=== PATIENT | female | born 1980 | race Two or more races ===

== ENCOUNTER 2020-08-04 14:02 | Outpatient (REF) | payer MEDICAID, OTHER, SELFPAY ==
[2020-08-08 22:57] LABS: HPV 16 RNA NOT DETECTED (NOT DETECTED); HPV mRNA E6/E7 rflx Detected (Not Detected)
== END 2020-08-04 14:03 | disposition home or self-care (01) ==
LOC: HO.LAB 14:02
PROVIDERS: Visit Provider Obstetrics & Gynecology
DX: Z01.419 Encounter for gynecological examination (general) (routine) without abnormal findings (principal); Z11.3 Encounter for screening for infections with a predominantly sexual mode of transmission
CPT/HCPCS: 87624; 87625; 88141; 88142

== ENCOUNTER 2020-08-04 16:48 | Outpatient (REF) | payer OTHER, MEDICAID, SELFPAY ==
[2020-08-05 02:30] LABS: CT PCR NOT DETECTED (Not Detect.); NG PCR NOT DETECTED (Not Detect.)
[2020-08-05 09:32] LABS: BV Int Neg Control Negative (Negative); BV Int Pos Control Positive (Positive)
== END 2020-08-04 16:49 | disposition home or self-care (01) ==
LOC: HO.LNP 16:48
PROVIDERS: Visit Provider Obstetrics & Gynecology
DX: Z11.3 Encounter for screening for infections with a predominantly sexual mode of transmission (principal)
CPT/HCPCS: 87480; 87491; 87510; 87591; 87660

== ENCOUNTER 2020-09-22 11:23 | Outpatient (REF) | payer OTHER, SELFPAY ==
--- NOTE | 2020-09-22 11:28 | MM_ITS ---
EXAMINATION: MM SCREENING DIGITAL BREAST TOMOSYNTHESIS, BILATERAL CLINICAL INFORMATION: Screening. Asymptomatic. No prior breast imaging. Age 40. No known family history breast cancer. The lifetime risk of breast cancer based on the Tyrer-Cuzick Model is 10%. COMPARISON: None (current study represents initial baseline exam). TECHNIQUE: Digital breast tomosynthesis is performed in both the craniocaudal and mediolateral oblique views along with computer-aided detection (CAD). Synthesized 2D images are generated from the tomosynthesis. FINDINGS: There are scattered areas of fibroglandular density (ACR BI-RADS breast composition Category b). There are no significant masses, abnormal calcifications, or other abnormalities. There is probable intramammary node posterior 1:00 left breast. Skin contours are smooth. MM/MM tomosynthesis screening BI IMPRESSION: No mammographic evidence of malignancy. ASSESSMENT: BI-RADS 2: Benign RECOMMENDATION: Routine annual mammography screening. This patient's information was entered into a reminder system with a target due date for their next mammogram.
== END 2020-09-22 11:24 | disposition home or self-care (01) ==
LOC: HO.MAMMO 11:23
PROVIDERS: Visit Provider Obstetrics & Gynecology
DX: Z12.31 Encounter for screening mammogram for malignant neoplasm of breast (principal)
CPT/HCPCS: 77063; 77067

== ENCOUNTER 2020-10-20 13:49 | Outpatient (REF) | payer OTHER, SELFPAY ==
--- NOTE | 2020-10-20 13:55 | XR_ITS ---
EXAMINATION: XR SHOULDER, RIGHT CLINICAL INFORMATION: Pain right shoulder. COMPARISON: None TECHNIQUE: AP external rotation, Grashey, scapular Y, and axillary views of the right shoulder. FINDINGS: The bones and soft tissues are normal. No fracture. Glenohumeral and acromioclavicular alignment is anatomic with normal joint space. No abnormal soft tissue calcifications. XR/XR shoulder RT min 2V IMPRESSION: Unremarkable right shoulder.
== END 2020-10-20 13:50 | disposition home or self-care (01) ==
LOC: HO.XRAY 13:49
PROVIDERS: PCP Internal Medicine; Visit Provider Internal Medicine
DX: M25.511 Pain in right shoulder (principal)
CPT/HCPCS: 73030

== ENCOUNTER 2020-10-21 09:30 | Outpatient (REF) | payer OTHER, SELFPAY ==
[2020-10-21 10:07] LABS: MANUAL DIFF FLAG NO
[2020-10-21 10:09] LABS: Basophils Percent Auto 0.4 % (0-2); Eosinophils Absolute Auto 0.1 X10*3/uL (0.0-0.4); Eosinophils Percent Auto 1.2 % (0-4); Hematocrit 40.7 % (37-47); Hemoglobin 12.9 g/dl (12.0-16.0); Imm Gran Abs Auto 0.02 X10*3/uL (0.00-0.03); Imm Gran Pct Auto 0.3 % (0.0-0.4); Lymphocytes Absolute Auto 3.2 X10*3/uL (1.2-4.9); Lymphocytes Percent Auto 47.2 % (20-40); Mean Corpuscular HGB Conc 31.7 g/dl (31.0-35.0); Mean Corpuscular Hemoglobin 26.1 pg (27.0-33.0); Mean Corpuscular Volume 82.4 fL (80-98); Mean Platelet Volume 10.4 fL (9.4-12.3); Monocytes Absolute Auto 0.4 X10*3/uL (0.1-1.2); Monocytes Percent Auto 6.1 % (2-11); Neutrophils Percent Auto 44.8 % (45-73); Platelet Count 389 X10*3/uL (160-400); Red Blood Count 4.94 X10*6/uL (4.20-5.50); Red Cell Distribution Width 13.6 % (11.0-16.0); White Blood Count 6.7 X10*3/uL (4.8-10.8)
[2020-10-21 10:42] LABS: Alanine Aminotransferase 34 U/L (0-31); Albumin Level 4.4 g/dL (3.5-5.0); Alkaline Phosphatase 62 U/L (39-117); Anion Gap 15 (12-20); Aspartate Amino Transferase 23 U/L (5-31); Bilirubin Total 0.8 mg/dL (0.0-1.0); Blood Urea Nitrogen 12 mg/dL (9-16); Calcium 9.3 mg/dL (8.4-10.2); Carbon Dioxide 24 mmol/L (22-29); Chloride 104 mmol/L (96-108); Cholesterol 254 mg/dL; Estimated Glomerular Filt Rate > 60; Glucose Fasting 173 mg/dL (60-99); HDL Cholesterol 61 mg/dL; LDL Cholesterol Calculated 146 mg/dl; Potassium 4.8 mmol/l (3.3-5.1); Sodium 138 mmol/L (135-145); Total Protein 7.6 g/dL (6.5-8.0); Triglycerides 237 mg/dL
[2020-10-21 10:52] LABS: TSH reflex Free T4 1.39 mIU/mL (0.32-4.0)
== END 2020-10-21 09:31 | disposition home or self-care (01) ==
LOC: HO.LAB 09:30
PROVIDERS: Absent Provider Internal Medicine; Visit Provider Internal Medicine
DX: E11.9 Type 2 diabetes mellitus without complications (principal); E78.5 Hyperlipidemia, unspecified; M25.511 Pain in right shoulder; Z79.899 Other long term (current) drug therapy
CPT/HCPCS: 36415; 80053; 80061; 84443; 85025

== ENCOUNTER → 2020-11-11 11:00 | Outpatient (BNVA) | payer OTHER, SELFPAY | PROVIDERS: Visit Provider Internal Medicine | DX: S46.811A Strain of other muscles, fascia and tendons at shoulder and upper arm level, right arm, initial encounter (principal) | CPT/HCPCS: 99202 ==

== ENCOUNTER 2021-09-03 08:43 | Outpatient (REF) | payer OTHER, SELFPAY ==
[2021-09-07 12:27] LABS: HPV mRNA E6/E7 rflx Not Detected (Not Detected)
== END 2021-09-03 08:44 | disposition home or self-care (01) ==
LOC: HO.LAB 08:43
PROVIDERS: PCP Internal Medicine; Visit Provider Advanced Practice Midwife
DX: Z01.419 Encounter for gynecological examination (general) (routine) without abnormal findings (principal); Z11.51 Encounter for screening for human papillomavirus (HPV)
CPT/HCPCS: 87624; 88142

== ENCOUNTER 2021-10-08 15:16 | Outpatient (REF) | payer OTHER, SELFPAY ==
--- NOTE | ~2021-10-08 | MM_ITS ---
EXAMINATION: MM SCREENING DIGITAL BREAST TOMOSYNTHESIS, BILATERAL CLINICAL INFORMATION: Screening. Asymptomatic. The lifetime risk of breast cancer based on the Tyrer-Cuzick Model is 9.0%. COMPARISON: Mammography: September 22, 2020 TECHNIQUE: Digital breast tomosynthesis is performed in both the craniocaudal and mediolateral oblique views along with computer-aided detection (CAD). Synthesized 2D images are generated from the tomosynthesis. FINDINGS: There are scattered areas of fibroglandular density (ACR BI-RADS breast composition Category b). There are no significant masses, abnormal calcifications, or other abnormalities. MM/MM tomosynthesis screening BI IMPRESSION: There are no significant changes from prior study. ASSESSMENT: BI-RADS 1: Negative RECOMMENDATION: Routine annual mammography screening. This patient's information was entered into a reminder system with a target due date for their next mammogram.
== END 2021-10-08 15:17 | disposition home or self-care (01) ==
LOC: HO.MAMMO 15:16
PROVIDERS: Visit Provider Advanced Practice Midwife
DX: Z12.31 Encounter for screening mammogram for malignant neoplasm of breast (principal)
CPT/HCPCS: 77063; 77067

== ENCOUNTER 2021-11-02 08:20 | Outpatient (REF) | payer OTHER, SELFPAY ==
[2021-11-02 09:56] LABS: Alanine Aminotransferase 12 U/L (0-31); Alkaline Phosphatase 48 U/L (39-117); Anion Gap 10 (12-20); Aspartate Amino Transferase 14 U/L (5-31); Bilirubin Total 1.2 mg/dL (0.0-1.0); Blood Urea Nitrogen 11 mg/dL (9-16); Calcium 9.5 mg/dL (8.4-10.2); Carbon Dioxide 27 mmol/L (22-29); Chloride 107 mmol/L (96-108); Cholesterol 183 mg/dL; Estimated Glomerular Filt Rate > 60; Glucose Fasting 89 mg/dL (60-99); HDL Cholesterol 50 mg/dL; LDL Cholesterol Calculated 115 mg/dl; Sodium 140 mmol/L (135-145); Total Protein 6.5 g/dL (6.5-8.0); Triglycerides 94 mg/dL
[2021-11-02 10:13] LABS: Creatinine Urine 585.75 mg/dL; Microalbum/Creatinine Ratio Ur 6.8 ug/mg cr
== END 2021-11-02 08:21 | disposition home or self-care (01) ==
LOC: HO.LAB 08:20
PROVIDERS: PCP Internal Medicine; Visit Provider Internal Medicine
DX: E11.9 Type 2 diabetes mellitus without complications (principal); E78.5 Hyperlipidemia, unspecified
CPT/HCPCS: 36415; 80053; 80061; 82043

== ENCOUNTER 2021-12-14 09:39 | Outpatient (REF) | payer OTHER, SELFPAY ==
[2021-12-15 04:40] LABS: CT PCR NOT DETECTED (Not Detect.); NG PCR NOT DETECTED (Not Detect.)
[2021-12-15 13:02] LABS: BV Int Neg Control Negative (Negative); BV Int Pos Control Positive (Positive)
[2021-12-17 09:36] LABS: HPV mRNA E6/E7 rflx Not Detected (Not Detected)
== END 2021-12-14 09:40 | disposition home or self-care (01) ==
LOC: HO.LAB 09:39
PROVIDERS: PCP Internal Medicine; Visit Provider Advanced Practice Midwife
DX: Z12.4 Encounter for screening for malignant neoplasm of cervix (principal); Z11.51 Encounter for screening for human papillomavirus (HPV); N94.6 Dysmenorrhea, unspecified; N92.0 Excessive and frequent menstruation with regular cycle; R87.615 Unsatisfactory cytologic smear of cervix
CPT/HCPCS: 87480; 87491; 87510; 87591; 87624; 87660; 88142; 99212

== ENCOUNTER 2022-01-04 13:48 | Outpatient (REF) | payer OTHER, SELFPAY ==
--- NOTE | ~2022-01-04 | US_ITS ---
EXAMINATION: US PELVIS CLINICAL INFORMATION: Excessive and frequent menstruation. COMPARISON: None. TECHNIQUE: Ultrasound of the pelvis is performed using both transabdominal and transvaginal transducers along with Doppler. Transvaginal imaging is performed due to inadequate visualization transabdominally. FINDINGS: Uterus: The uterus is anteverted, anteflexed and measures 9.1 cm in length, 5.4 mL in AP and 4.9 cm in transverse dimension. The double wall endometrial thickness is 0.9 cm. The uterus is smooth in contour and has normal myometrial echogenicity. No visible fibroid. Adnexa: Both ovaries are visualized. There is normal color flow to the adnexa. There is no ovarian torsion. There is no pelvic ascites or fluid collection. Right ovary measures 3.2 x 2.2 x 1.9 cm and volume 7.0 mL. There is an anechoic cyst measuring 2.2 x 1.7 x 2.0 cm. Left ovary measures 2.9 x 2.6 x 2.5 cm and volume 9.9 mL. There is a small heterogeneous area in the left ovary, question complex cyst There is small amount of free fluid in cul-de-sac US/US pelvic and transvaginal IMPRESSION: Unremarkable uterus. Simple cyst right ovary. Complex cyst left ovary. Minimal free fluid in the cul-de-sac.
== END 2022-01-04 13:49 | disposition home or self-care (01) ==
LOC: HO.US 13:48
PROVIDERS: PCP Internal Medicine; Visit Provider Advanced Practice Midwife
DX: N92.0 Excessive and frequent menstruation with regular cycle (principal)
CPT/HCPCS: 76830; 76856

== ENCOUNTER 2022-02-23 13:51 | Outpatient (REF) | payer OTHER, SELFPAY | END 2022-02-23 13:52 | disposition home or self-care (01) | LOC: HO.LAB 13:51 | PROVIDERS: Visit Provider Advanced Practice Midwife | DX: N92.0 Excessive and frequent menstruation with regular cycle (principal); N83.292 Other ovarian cyst, left side; Z71.2 Person consulting for explanation of examination or test findings | CPT/HCPCS: 58100; 88305 ==

== ENCOUNTER 2022-03-01 09:48 | Outpatient (REF) | payer OTHER, SELFPAY ==
[2022-03-01 10:18] LABS: Hematocrit 36.8 % (37.0-47.0); Hemoglobin 11.4 g/dl (12.0-16.0); Mean Corpuscular Hemoglobin 25.2 pg (27.0-33.0); Mean Corpuscular Volume 81.2 fL (80.0-98.0); Mean Platelet Volume 9.7 fL (9.4-12.3); Platelet Count 318 X10*3/uL (160-400); Red Blood Count 4.53 X10*6/uL (4.20-5.50); Red Cell Distribution Width 14.5 % (11.0-16.0); White Blood Count 4.2 X10*3/uL (4.8-10.8)
== END 2022-03-01 09:49 | disposition home or self-care (01) ==
LOC: HO.LAB 09:48
PROVIDERS: PCP Internal Medicine; Visit Provider Advanced Practice Midwife
DX: N92.1 Excessive and frequent menstruation with irregular cycle (principal)
CPT/HCPCS: 36415; 84443; 85027

== ENCOUNTER 2022-04-05 11:22 | Outpatient (REF) | payer OTHER, SELFPAY ==
--- NOTE | ~2022-04-05 | US_ITS ---
EXAMINATION: US PELVIS CLINICAL INFORMATION: Left-sided ovarian cyst. COMPARISON: None TECHNIQUE: Ultrasound of the pelvis is performed using both transabdominal and transvaginal transducers along with Doppler. Transvaginal imaging is performed due to inadequate visualization transabdominally. FINDINGS: Uterus: The uterus is anteverted and measures 9.6 x 5.5 x 2.7 cm The double wall endometrial thickness is 1.0 cm. The uterus is smooth in contour and has normal myometrial echogenicity. No visible fibroid. Adnexa: Both ovaries are visualized. There is normal color flow to the adnexa. There is no ovarian torsion. There is no pelvic ascites or fluid collection. Right ovary measures 4.8 x 3.9 x 2.7 cm. Volume 26.4 mL. There is a involuting small corpus luteal cyst measuring 3.0 1.8-2.2 cm. Previously right ovary measured 2.2 x 12.2 x 1.9 seen. Left ovary measures 2.5 x 1.7 x 1.5 cm and volume 3.3 mL. Previously left ovary measured 2.9 x 2.6 x 2.5 cm. The no free fluid in the cul-de-sac. US/US pelvic and transvaginal IMPRESSION: Involuting corpus luteal cyst right ovary. The uterus, cervix and the left ovary is unremarkable.
== END 2022-04-05 11:23 | disposition home or self-care (01) ==
LOC: HO.US 11:22
PROVIDERS: Visit Provider Advanced Practice Midwife
DX: N83.292 Other ovarian cyst, left side (principal)
CPT/HCPCS: 76830; 76856

== ENCOUNTER 2022-04-12 09:08 | Outpatient (REF) | payer OTHER, SELFPAY ==
[2022-04-12 10:24] LABS: Alanine Aminotransferase 12 U/L (0-31); Albumin Level 4.1 g/dL (3.5-5.0); Alkaline Phosphatase 45 U/L (39-117); Anion Gap 10 (12-20); Aspartate Amino Transferase 14 U/L (5-31); Bilirubin Total 1.2 mg/dL (0.0-1.0); Blood Urea Nitrogen 12 mg/dL (9-16); Calcium 9.2 mg/dL (8.4-10.2); Carbon Dioxide 27 mmol/L (22-29); Chloride 108 mmol/L (96-108); Cholesterol 191 mg/dL; Estimated Glomerular Filt Rate > 60; Glucose Random 86 mg/dL (60-115); HDL Cholesterol 60 mg/dL; LDL Cholesterol Calculated 111 mg/dl; Potassium 4.7 mmol/L (3.3-5.1); Sodium 140 mmol/L (135-145); Total Protein 6.9 g/dL (6.5-8.0); Triglycerides 104 mg/dL
[2022-04-12 10:30] LABS: Estimated Average Glucose 114 mg/dL; Hemoglobin A1c % 5.6 %
[2022-04-12 10:44] LABS: Vitamin D 25-OH Total 49.2 ng/mL (>30)
== END 2022-04-12 09:09 | disposition home or self-care (01) ==
LOC: HO.LAB 09:08
PROVIDERS: PCP Internal Medicine; Visit Provider Nurse Practitioner Family
DX: E11.9 Type 2 diabetes mellitus without complications (principal); E78.5 Hyperlipidemia, unspecified
CPT/HCPCS: 36415; 80053; 80061; 82306; 83036

== ENCOUNTER → 2022-05-03 09:46 | Outpatient (BNVA) | payer OTHER, SELFPAY | PROVIDERS: PCP Internal Medicine; Visit Provider Advanced Practice Midwife | DX: Z71.2 Person consulting for explanation of examination or test findings (principal); N92.0 Excessive and frequent menstruation with regular cycle | CPT/HCPCS: 99212 ==

== ENCOUNTER 2022-10-14 08:40 | Outpatient (REF) | payer OTHER, SELFPAY ==
--- NOTE | ~2022-10-14 | MM_ITS ---
EXAMINATION: MM SCREENING DIGITAL BREAST TOMOSYNTHESIS, BILATERAL CLINICAL INFORMATION: Screening. Asymptomatic. The lifetime risk of breast cancer based on the Tyrer-Cuzick Model is 12%. COMPARISON: Mammography: 10/08/2021 and 09/22/2020. TECHNIQUE: Digital breast tomosynthesis was performed in both the craniocaudal and mediolateral oblique views along with computer-aided detection (CAD). Synthesized 2D images were generated from the tomosynthesis. FINDINGS: There are scattered areas of fibroglandular density (ACR BI-RADS breast composition Category b). There is a stable parenchymal pattern of the right breast with no new abnormal dominant mass or suspicious grouping of microcalcifications. About the retroareolar region of the left breast on the craniocaudal view, there is a 7 mm density for which spot compression view and ultrasound are recommended. MM/MM tomosynthesis screening BI IMPRESSION: Left breast retroareolar density for further evaluation. ASSESSMENT: BI-RADS 0: Incomplete - Need Additional Imaging Evaluation RECOMMENDATION: 1. Additional views of the left breast. 2. Targeted ultrasound if warranted after review of the additional views. 3. Radiology department staff will contact the patient for additional imaging. This patient's information was entered into a reminder system with a target due date for their next mammogram.
== END 2022-10-14 08:41 | disposition home or self-care (01) ==
LOC: HO.MAMMO 08:40
PROVIDERS: PCP Internal Medicine; Visit Provider Internal Medicine
DX: Z12.31 Encounter for screening mammogram for malignant neoplasm of breast (principal)
CPT/HCPCS: 77063; 77067

== ENCOUNTER 2022-11-03 12:57 | Outpatient (REF) | payer OTHER, SELFPAY ==
--- NOTE | ~2022-11-03 | MM_ITS ---
EXAMINATION: MM DIAGNOSTIC DIGITAL BREAST TOMOSYNTHESIS, LEFT CLINICAL INFORMATION: Question retroareolar mass. COMPARISON: Mammography: 10/14/2022 and studies dating back to 09/22/2020. TECHNIQUE: Digital breast tomosynthesis is performed. 2D images are generated from the tomosynthesis. The following views are obtained: Spot compression craniocaudal and spot 90-degree mediolateral views. FINDINGS: There are scattered areas of fibroglandular density (ACR BI-RADS breast composition Category b). Additional views show no significant mass, architectural abnormality, or abnormal calcifications. The density seen on previous study appears to have represented superimposition of fibroglandular tissue. Results are discussed with the patient at time of visit. MM/MM tomosynthesis added views L IMPRESSION: No persistent abnormal retroareolar lesion left breast. ASSESSMENT: BI-RADS 1: Negative. RECOMMENDATION: Routine annual mammography screening. This patient's information was entered into a reminder system with a target due date for their next mammogram.
== END 2022-11-03 12:58 | disposition home or self-care (01) ==
LOC: HO.MAMMO 12:57
PROVIDERS: PCP Internal Medicine; Visit Provider Internal Medicine
DX: R92.2 Inconclusive mammogram (principal)
CPT/HCPCS: 77061; 77065

== ENCOUNTER 2022-11-16 09:09 | Outpatient (REF) | payer OTHER, SELFPAY ==
[2022-11-16 10:51] LABS: Creatinine Urine 223.37 mg/dL
[2022-11-16 10:51] LABS: Alanine Aminotransferase 12 U/L (0-31); Alkaline Phosphatase 38 U/L (39-117); Anion Gap 10 (12-20); Aspartate Amino Transferase 14 U/L (5-31); Blood Urea Nitrogen 12 mg/dL (9-16); Calcium 9.1 mg/dL (8.4-10.2); Carbon Dioxide 26 mmol/L (22-29); Chloride 109 mmol/L (96-108); Cholesterol 204 mg/dL; Estimated Glomerular Filt Rate > 60; Glucose Fasting 78 mg/dL (60-99); HDL Cholesterol 58 mg/dL; LDL Cholesterol Calculated 132 mg/dl; Potassium 4.5 mmol/L (3.3-5.1); Sodium 140 mmol/L (135-145); Total Protein 6.5 g/dL (6.5-8.0); Triglycerides 74 mg/dL
== END 2022-11-16 09:10 | disposition home or self-care (01) ==
LOC: HO.LAB 09:09
PROVIDERS: PCP Internal Medicine; Visit Provider Internal Medicine
DX: E11.65 Type 2 diabetes mellitus with hyperglycemia (principal); E78.5 Hyperlipidemia, unspecified
CPT/HCPCS: 36415; 80053; 80061; 82043

== ENCOUNTER 2023-04-21 13:52 | Outpatient (REF) | payer OTHER, SELFPAY ==
[2023-04-23 23:59] LABS: TS Negative Control Passed; TS Panel A 0; TS Panel B 1; TS Positive Control Passed; TSpotTB Negative (Negative)
== END 2023-04-21 13:53 | disposition home or self-care (01) ==
LOC: HO.LAB 13:52
PROVIDERS: PCP Internal Medicine; Visit Provider Internal Medicine
DX: Z11.1 Encounter for screening for respiratory tuberculosis (principal)
CPT/HCPCS: 36415; 86481

== ENCOUNTER 2023-05-19 10:53 | Outpatient (AMB) | payer OTHER, SELFPAY ==
[2023-05-19 10:57] VITALS: BP 126/80; BMI 24.4
--- NOTE | 2023-05-19 10:57 | MHC.PC.OV ---
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 Accompanied by: Self / Same As Patient Allergies No Known Allergies Allergy (Verified 05/19/23 11:18) Medication List - Last Reconciled 05/19/23 by Yumiko Max MD atorvastatin 20 mg PO BEDTIME 90 days blood sugar diagnostic (FreeStyle Lite Strips) Use 1 test strip once a day blood-glucose meter (FreeStyle Lite Meter kit) As directed lancets (FreeStyle Lancets) Use 1 lancet once a day metformin 500 mg PO DAILY 90 days omeprazole 20 mg PO DAILY 90 days pen needle, diabetic (BD Debi 2nd Gen Pen Needle) Use 1 pen needle daily Tobacco use date assessed: 11/09/22 Dental Screening Dental Screen Date: 05/19/23 Did you have a dental visit in the last 12 months?: Yes Did you have a dental problem in the last 6 months where you did not have access to dental care?: No Was dental information given to patient?: Patient has dentist HPI HPI Comments History of Present Illness Details This is a 43-year-old female with diabetes mellitus type 2 that comes for her physical exam. A1c within goal. Mammogram done 2022. Pap smear done 2021 with negative HPV. No chest pain or shortness of breath doing well. FORMERLY [facility], [facility]–1983 Medical History Blurry vision Chronic GERD Diabetes mellitus Dyslipidemia Obese Right shoulder pain Surgical History History of bilateral tubal ligation Hx of breast reduction, elective Family History Mother Hypertension Pre-diabetes Father Hypertension Diabetes Social History Housing: Apartment Alcohol intake: current Alcohol intake frequency: holidays/special occasions only Alcohol type: wine Patient Tobacco Use Status: Never used Tobacco e-Cigarette/Vaping Use: Never Used Second Hand Smoke Exposure: Yes service: No Current occupational status: unemployed Sexual orientation: Straight/Heterosexual Gender identity: Female Cognitive needs: No Hearing needs: No Vision needs: Yes Female Reproductive History Menstrual Age of Menarche: 13 Questionnaire Thrive Questionnaire Date Thrive assessed: 11/09/22 DIDI-7 AMB Questionnaire DIDI-7 Date DIDI - 7 assessed: 11/09/22 Source: Developed by Drs. Chandan Bañuelos, Edel Doshi, Black Fermin and colleagues, with an educational stan from [employer] Review of Systems Const All systems reviewed & are unremarkable except as noted in HPI and below Eyes Reports no additional complaints, Denies change in vision and Denies other visual disturbances Card Denies chest pain at rest, Denies chest pain with activity, Denies edema, Denies irregular heart rhythm, Denies claudication, Denies dyspnea, Denies dyspnea on exertion, Denies orthopnea, Denies paroxysmal nocturnal dyspnea and Denies slow heart rate Resp Denies cough, Denies dyspnea and Denies dyspnea on exertion GI Denies abdominal pain, Denies change in bowel habits, Denies excessive flatus, Denies nausea and Denies vomiting Denies urinary incontinence, Denies urinary hesitancy and Denies urinary urgency Musc Denies abnormal gait, Denies atrophy, Denies deformity and Denies limited range of motion Skin/Breast Denies bleeding lesions, Denies changing lesions and Denies rash Neuro Denies abnormal gait and Denies lack of coordination Physical exam (Primary Care) Vital Signs: Last Vital Signs BP 126/80 05/19/23 10:57 BMI result Body Mass Index 24.4 Tobacco/Smoking Status: Tobacco use Status Tobacco use date assessed 11/09/22 05/19/23 11:01 Patient Tobacco Use Status Never used Tobacco 05/19/23 11:01 Tobacco use type 04/08/22 12:28 e-Cigarette/Vaping Use Never Used 05/19/23 11:01 Thrive Assessment: Date of Thrive Assessment Date Thrive assessed 11/09/22 05/19/23 11:01 Const Orientation/consciousness: patient oriented x3 HENMT Head: Yes normal to inspection, Yes normocephalic and Yes atraumatic Ears: external ears normal Eyes General: appearance normal, both eyes and all related structures Eyelids: Yes eyelids normal Conjunctivae: conjunctivae normal Neck Neck: Yes normal visual inspection and Yes supple Resp Effort & Inspection: normal respiratory effort Auscultation: clear to auscultation bilaterally Cardio Jugular venous distension: no JVD Rate: regular rate Rhythm: regular rhythm Heart sounds: S1 normal heart sound present and S2 normal heart sound present GI Inspection: Yes normal to inspection Palpation (GI): Soft to palpation and nontender Auscultation: normal bowel sounds Skin General skin exam: no rashes or lesions noted Neuro General: patient oriented x3 and no focal motor deficits Extrem General: Yes full ROM Psych Appearance: grossly normal Results AMB Hemoglobin A1c AMB Hemoglobin A1c 5.3 % Last Edit by CARLITA Arias on 05/19/23 11:15 Results Reviewed Results Reviewed: Laboratory Last Values Hgb A1c (Clinic) 5.3 % (4.0-6.0) 05/19/23 11:07 Assessment and Plan Assessment & Plan (1) Adult general medical exam: Code(s): Z00.00 - Encounter for general adult medical examination without abnormal findings Plan: Repeat in a year (2) Diabetes mellitus: Code(s): E11.9 - Type 2 diabetes mellitus without complications Qualifiers: Diabetes mellitus type: type 2 Diabetes mellitus terminal superintendent insulin use: without prison use Diabetes mellitus complication status: with hyperglycemia Qualified Code(s): E11.65 - Type 2 diabetes mellitus with hyperglycemia Plan: Continue metformin. A1c goal is equal or less than 7%. Orders: Orders Vitamin B12 and Folate Today E53.8 - Deficiency of other specified B group vitamins Comprehensive [place]. Panel Fast Today E11.65 - Type 2 diabetes mellitus with hyperglycemia IRON PROFILE Today D64.9 - Anemia, unspecified Lipid Panel Today E78.5 - Hyperlipidemia, unspecified Vitamin D 25-OH Total Today E55.9 - Vitamin D deficiency, unspecified Microalbumin, Random (w Creat) Today E11.9 - Type 2 diabetes mellitus without complications Complete Blood Count Auto Diff Today D64.9 - Anemia, unspecified AMB Hemoglobin A1c Today E11.9 - Type 2 diabetes mellitus without complications Coding Level of Care Code Est Pt Prev Care 40-64y(20392) Diagnoses Adult general medical exam Z00.00 Diabetes mellitus E11.65 Diabetes mellitus type: type 2 Diabetes mellitus prison insulin use: without terminal superintendent use Diabetes mellitus complication status: with hyperglycemia Time Spent (min) 33
== END 2023-05-19 12:15 | disposition home or self-care (01) ==
PROVIDERS: PCP Internal Medicine; Visit Provider Internal Medicine
DX: Z00.00 Encounter for general adult medical examination without abnormal findings (principal); E11.65 Type 2 diabetes mellitus with hyperglycemia; E11.9 Type 2 diabetes mellitus without complications
CPT/HCPCS: 83036; 99396

== ENCOUNTER 2023-08-16 15:13 | Outpatient (AMB) | payer OTHER, SELFPAY ==
--- NOTE | 2023-08-16 15:15 | A.OFFVIS_ITS ---
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 Doing well with no concerns. She tries to eat healthy and stays active with some exercise. Regular monthly menses that last approximately x5d. Currently sexually active with her . She denies vaginal itching and irritation, only dryness-not using any products for this. STI screening offered; she declines. Denies family history of breast, ovarian or colon cancer. Last pap smear UTD. [facility], [facility] Medical History Chronic GERD Dyslipidemia Blurry vision Right shoulder pain Obese Diabetes mellitus Surgical History History of bilateral tubal ligation Hx of breast reduction, elective Family History Mother Hypertension Pre-diabetes Father Hypertension Diabetes Housing: Apartment Alcohol intake: current Alcohol intake frequency: holidays/special occasions only Alcohol type: wine Patient Tobacco Use Status: Never used Tobacco e-Cigarette/Vaping Use: Never Used Second Hand Smoke Exposure: Yes service: No Current occupational status: unemployed Sexual orientation: Straight/Heterosexual Gender identity: Female Cognitive needs: No Hearing needs: No Vision needs: Yes Female Reproductive History Menstrual Age of Menarche: 13 Duration of menses: 3-5 days Date of last menstrual period: 08/09/23 control method: permanent sterilization Permanent Sterilization: BTL Total pregnancies: 5 Full term: 2 Number of Living Children: 2 Ab spontaneous: 3 Date of last pap smear: 12/14/21 (neg pap and hpv) History of abnormal pap smear: Yes (07/2020 +hpv) Date of Mammogram: 10/14/22 (Birad 0) Review of Systems Const All systems reviewed & are unremarkable except as noted in HPI and below Reports as per HPI Eyes Reports no additional complaints ENT Reports no additional complaints Card Reports no additional complaints Resp Reports no additional complaints GI Reports as per HPI and Reports no additional complaints Reports as per HPI Musc Reports no additional complaints Skin/Breast Reports as per HPI Neuro Reports no additional complaints Psych Reports no additional complaints Endo Reports no additional complaints Vahe/Lymph Reports no additional complaints Aller/Immun Reports no additional complaints Physical Exam Vital Signs: Last Vital Signs BP 114/70 08/16/23 15:16 BMI result Body Mass Index 24.8 Const General: cooperative, healthy appearing, no acute distress, well developed and alert Orientation/consciousness: patient oriented x3 HEENT Head: Yes normal to inspection Eyes General: appearance normal, both eyes and all related structures Neck Neck: Yes normal visual inspection Thyroid: Thyroid normal Chest Other: Bilateral breast reconstruction scarring Chest palpation & inspection: normal inspection of the chest and other (no puckering, dimpling, peau de orange, retraction, discharge, masses) Breast/axilla inspection: normal inspection of the breasts Breast/axilla palpation: normal palpation of the breasts Resp Effort & Inspection: normal respiratory effort GI Other: Abdominoplasty scarring Inspection: Yes normal to inspection Palpation (GI): Soft to palpation Rectal Exam - Female: deferred General: Yes bladder normal to palpation External Female Exam: normal external appearance and normal appearance of the urethra Speculum Exam - Vagina: normal appearance of the vagina, normal palpation and normal vaginal discharge Speculum Exam - Cervix: normal appearance of the cervix and normal palpation Bimanual exam- vagina & uterus: normal bimanual exam, normal palpation, uterine size normal, bladder normal to palpation, normal palpation and non-tender Bimanual Exam- Adnexa, other: no masses Skin General skin exam: no rashes or lesions noted Rashes: no rashes Neuro General: patient oriented x3 Cognition (Neuro): normal cognition Extrem General: Yes normal to inspection Psych Attitude: cooperative Thought process: Normal thought process present Assessment & Plan Assessment & Plan (1) Encounter for well woman exam with routine gynecological exam: Code(s): Z01.419 - Encounter for gynecological examination (general) (routine) without abnormal findings Plan Discussed: Current recommendations for pap smears per ASCCP guidelines. Breast awareness and periodic breast exams. Maintain a healthy lifestyle including a well balanced diet and routine exercise. Recommended to call the office if bleeding is less than 3 weeks apart, or any heavy prolonged bleeding. Replens moisturizer. All of her questions and concerns were addressed to the best of my ability. 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 Coding Level of Care Code Est Pt Prev Care 40-64y(75741) Diagnoses Encounter for well woman exam with routine gynecological exam Z01.419
[2023-08-16 15:16] VITALS: BP 114/70; BMI 24.8
== END 2023-08-16 15:42 | disposition home or self-care (01) ==
LOC: HO.HWS 15:13
PROVIDERS: PCP Internal Medicine; Visit Provider Advanced Practice Midwife
DX: Z01.419 Encounter for gynecological examination (general) (routine) without abnormal findings (principal)
CPT/HCPCS: 99396

== ENCOUNTER → 2023-08-16 15:13 | Outpatient (BNVA) | payer OTHER, SELFPAY | PROVIDERS: PCP Internal Medicine; Visit Provider Advanced Practice Midwife ==

== ENCOUNTER 2023-10-03 11:13 | Outpatient (AMB) | payer OTHER, SELFPAY ==
[2023-10-03 11:16] VITALS: BP 110/70; BMI 23.9
--- NOTE | 2023-10-03 11:16 | MHC.PC.OV ---
Vital Signs 10/03/23 11:16 Height 5 ft 3 in Weight 135 lb BMI 23.9 BP 110/70 Blood Pressure Location Lt brachial Position Sitting Intake Visit Reasons: 4mon f/u Intake Note: Patient here for a 4 month follow up Crm Technical Lead Required: No Accompanied by: Self / Same As Patient Allergies No Known Allergies Allergy (Verified 10/03/23 11:23) Medication List - Last Reconciled 10/03/23 by Yumiko Max MD atorvastatin 20 mg PO BEDTIME 90 days blood sugar diagnostic (FreeStyle Lite Strips) Use 1 test strip once a day blood-glucose meter (FreeStyle Lite Meter kit) As directed lancets (FreeStyle Lancets) Use 1 lancet once a day metformin 500 mg PO DAILY 90 days omeprazole 20 mg PO DAILY 90 days pen needle, diabetic (BD Debi 2nd Gen Pen Needle) Use 1 pen needle daily Tobacco use date assessed: 10/03/23 Dental Screening Dental Screen Date: 10/03/23 Did you have a dental visit in the last 12 months?: Yes Did you have a dental problem in the last 6 months where you did not have access to dental care?: No Was dental information given to patient?: Patient has dentist HPI HPI Comments History of Present Illness Details This is a 43-year-old female with diabetes mellitus type 2, chronic GERD and hyperlipidemia that comes today complaining of diffuse joint pain that has been present for few months with no swelling. The pain is symmetric. She also has frequent headaches. No chest pain or shortness of breath. A1c within goal. GERD stable with PPIs as needed. Lipid panel will be order and her LDL goal should be less than 70. [facility] Medical History (Updated 10/03/23 @ 11:30 by Yumiko Max MD) Chronic GERD Dyslipidemia Blurry vision Right shoulder pain Obese Diabetes mellitus Surgical History History of bilateral tubal ligation Hx of breast reduction, elective Family History Mother Hypertension Pre-diabetes Father Hypertension Diabetes Social History Housing: Apartment Alcohol intake: current Alcohol intake frequency: holidays/special occasions only Alcohol type: wine Patient Tobacco Use Status: Never used Tobacco e-Cigarette/Vaping Use: Never Used Second Hand Smoke Exposure: Yes service: No Current occupational status: employed Current occupational exposures/hazards: No Sexual orientation: Straight/Heterosexual Gender identity: Female Cognitive needs: No Hearing needs: No Vision needs: Yes Female Reproductive History Menstrual Age of Menarche: 13 Questionnaire PHQ-9 Over the last 2 weeks, how often have you been bothered by any of the following problems? 1. Little interest or pleasure in doing things: not at all 2. Feeling down, depressed, or hopeless: not at all 3. Trouble falling or staying asleep, or sleeping too much: not at all 4. Feeling tired or having little energy: not at all 5. Poor appetite or overeating: not at all 6. Feeling bad about yourself - or that you are a failure or have let yourself or your family down: not at all 7. Trouble concentrating on things, such as reading the newspaper or watching television: not at all 8. Moving or speaking so slowly that other people could have noticed. Or the opposite - being so fidgety or restless that you have been moving around a lot more than usual: not at all 9. Thoughts that you would be better off or of hurting yourself in some way: not at all Total score: 0 Depression Screening Interpretation: Negative Depression Screening Done: Yes 10039 - PHQ-9 Billing: Yes Source: Developed by Drs. Chandan Bañuelos, Edel Doshi, Black Fermin and colleagues, with an educational stan from [employer]. Thrive Questionnaire Date Thrive assessed: 10/03/23 I am a: Patient What is your living situation today?: I have a steady place to live Within the past 12 months, did the food you bought not last and you didn't have the money to get more?: Never true Within the past 12 months, did you worry whether your food would run out before you got money to buy more?: Never true Do you have trouble paying for medicines?: No Do you have trouble getting transportation to medical appointments?: No Do you have trouble paying your heating and electricity bill?: No Do you have trouble taking care of your child, family member or friend?: No Do you have trouble with day-to-day activities such as bathing, preparing meals, shopping, managing finances, etc.?: No Are you currently unemployed and looking for a job?: No Are you interested in more education?: No Please select the resources that you would like help with: None Currently or been in a relationship where the following occur: no concerns reported AUDIT C Alcohol Use Questionnaire (AUDIT-C) 1. How often do you have a drink containing alcohol?: Monthly or less 2. How many drinks containing alcohol do you have on a typical day when you are drinking?: 1 or 2 3. How often do you have six or more drinks on one occasion?: Never Total Score: 1 Score Reviewed/Action Taken: No DIDI-7 AMB Questionnaire DIDI-7 Date DIDI - 7 assessed: 10/03/23 Feeling nervous, anxious, or on edge: 0 = Not at all Not being able to stop or control worryin = Not at all Worrying too much about different things: 0 = Not at all Trouble relaxin = Not at all Being so restless that it is hard to sit still: 0 = Not at all Becoming easily annoyed or irritable: 0 = Not at all Feeling afraid as if something awful might happen: 0 = Not at all Total DIDI-7 score (0-4 normal; 5-9 mild; 10-14 moderate; 15-21 severe): 0 Source: Developed by Drs. Chandan Bañuelos, Edel Doshi, Black Fermin and colleagues, with an educational stan from [employer]. DIDI-7 Assessment Billing DIDI-7 Assessment Tool: DIDI-7 Assessment 68967 Review of Systems Const All systems reviewed & are unremarkable except as noted in HPI and below Eyes Reports no additional complaints, Denies change in vision and Denies other visual disturbances Card Denies chest pain at rest, Denies chest pain with activity, Denies edema, Denies irregular heart rhythm, Denies claudication, Denies dyspnea, Denies dyspnea on exertion, Denies orthopnea, Denies paroxysmal nocturnal dyspnea and Denies slow heart rate Resp Denies cough, Denies dyspnea and Denies dyspnea on exertion GI Denies abdominal pain, Denies change in bowel habits, Denies excessive flatus, Denies nausea and Denies vomiting Denies urinary incontinence, Denies urinary hesitancy and Denies urinary urgency Musc Denies abnormal gait, Denies atrophy, Denies deformity and Denies limited range of motion Skin/Breast Denies bleeding lesions, Denies changing lesions and Denies rash Neuro Denies abnormal gait and Denies lack of coordination Physical exam (Primary Care) Vital Signs: Last Vital Signs BP 110/70 10/03/23 11:16 BMI result Body Mass Index 23.9 Tobacco/Smoking Status: Tobacco use Status Tobacco use date assessed 10/03/23 10/03/23 11:17 Patient Tobacco Use Status Never used Tobacco 10/03/23 11:17 Tobacco use type 04/08/22 12:28 e-Cigarette/Vaping Use Never Used 10/03/23 11:17 Depression Screening Interpretation: Negative Thrive Assessment: Date of Thrive Assessment Date Thrive assessed 11/09/22 10/03/23 11:17 Currently or been in a relationship where the following occur: no concerns reported Eyes General: appearance normal, both eyes and all related structures Eyelids: Yes eyelids normal Conjunctivae: conjunctivae normal Neck Neck: Yes normal visual inspection and Yes supple Resp Effort & Inspection: normal respiratory effort Auscultation: clear to auscultation bilaterally Cardio Jugular venous distension: no JVD Rate: regular rate Rhythm: regular rhythm Heart sounds: S1 normal heart sound present and S2 normal heart sound present Extrem General: Yes full ROM Results AMB Hemoglobin A1c AMB Hemoglobin A1c 5.5 % Last Edit by CARLITA Arias on 10/03/23 11:29 Assessment and Plan Assessment & Plan (1) Diabetes mellitus: Code(s): E11.9 - Type 2 diabetes mellitus without complications Qualifiers: Diabetes mellitus type: type 2 Diabetes mellitus intermediate manager insulin use: without intermediate manager use Diabetes mellitus complication status: with hyperglycemia Qualified Code(s): E11.65 - Type 2 diabetes mellitus with hyperglycemia Plan: Continue metformin. A1c goal is equal or less than 7%. (2) Chronic GERD: Code(s): K21.9 - Gastro-esophageal reflux disease without esophagitis Plan: Continue PPIs as needed. (3) Hyperlipidemia LDL goal <70: Code(s): E78.5 - Hyperlipidemia, unspecified Plan: Continue statins. LDL goal should be less than 70. (4) Polyarthralgia: Code(s): M25.50 - Pain in unspecified joint Plan: Referred to rheumatology. Labs ordered to rule out rheumatoid arthritis or any other connective tissue disease. Orders: Orders AMB Hemoglobin A1c Today E11.9 - Type 2 diabetes mellitus without complications Lipid Panel Today E78.5 - Hyperlipidemia, unspecified Erythrocyte Sedimentation Rate Today M25.50 - Pain in unspecified joint CRP High Sensitivity Today M25.50 - Pain in unspecified joint Rheumatoid Factor Today M25.50 - Pain in unspecified joint Anti DNA DS Antibody Today M25.50 - Pain in unspecified joint Microalbumin, Random (w Creat) Today E11.9 - Type 2 diabetes mellitus without complications Comprehensive [place]. Panel Fast Today M25.50 - Pain in unspecified joint Cyclic Citrullinated Peptide Today M25.50 - Pain in unspecified joint YUMIKO Reflex Titer and Pattern Today M25.50 - Pain in unspecified joint Referrals Rheumatology Referral M25.50 - Pain in unspecified joint Ophthalmology Referral E11.9 - Type 2 diabetes mellitus without complications Medications: New sumatriptan succinate do not exceed 8 doses per 24 hrs 25 mg PO Q2-4H 30 days PRN 9 tabs 1RF migraine headache Refilled metformin 500 mg PO DAILY 90 days 90 tabs 1RF E11.65 - Type 2 diabetes mellitus with hyperglycemia atorvastatin 20 mg PO BEDTIME 90 days 90 tabs 1RF E78.5 - Hyperlipidemia, unspecified omeprazole 20 mg PO DAILY 90 days 90 caps 3RF M25.50 - Pain in unspecified joint Coding Level of Care Code Est Pt Level 4 (49610) Diagnoses Type 2 diabetes mellitus with hyperglycemia, without long-term current use of insulin E11.65 Diabetes mellitus type: type 2 Diabetes mellitus intermediate manager insulin use: without intermediate manager use Diabetes mellitus complication status: with hyperglycemia Chronic GERD K21.9 Hyperlipidemia LDL goal <70 E78.5 Polyarthralgia M25.50 Additional Codes DIDI-7 Assessment Billing - DIDI-7 Assessment Tool: DIDI-7 Assessment [id number] ([id number]) Time Spent (min) 23
== END 2023-10-03 11:37 | disposition home or self-care (01) ==
PROVIDERS: PCP Internal Medicine; Visit Provider Internal Medicine
DX: E11.65 Type 2 diabetes mellitus with hyperglycemia (principal); E11.69 Type 2 diabetes mellitus with other specified complication; K21.9 Gastro-esophageal reflux disease without esophagitis; E78.5 Hyperlipidemia, unspecified; M25.50 Pain in unspecified joint
CPT/HCPCS: 83036; 99214

== ENCOUNTER 2023-10-11 10:12 | Outpatient (REF) | payer OTHER, SELFPAY ==
[2023-10-11 10:29] LABS: MANUAL DIFF FLAG NO
[2023-10-11 10:49] LABS: Basophils Percent Auto 0.5 % (0-2); Eosinophils Absolute Auto 0.1 X10*3/uL (0.0-0.4); Eosinophils Percent Auto 1.1 % (0-4); Imm Gran Abs Auto 0.01 X10*3/uL (0.00-0.03); Imm Gran Pct Auto 0.2 % (0.0-0.4); Lymphocytes Absolute Auto 2.5 X10*3/uL (1.2-4.9); Lymphocytes Percent Auto 56.8 % (20-40); Mean Corpuscular HGB Conc 31.4 g/dl (31.0-35.0); Mean Corpuscular Hemoglobin 25.2 pg (27.0-33.0); Mean Corpuscular Volume 80.1 fL (80.0-98.0); Mean Platelet Volume 9.5 fL (9.4-12.3); Monocytes Absolute Auto 0.2 X10*3/uL (0.1-1.2); Monocytes Percent Auto 5.2 % (2-11); Neutrophils Absolute Auto 1.6 x10*3/uL (2.0-8.3); Neutrophils Percent Auto 36.2 % (45-73); Platelet Count 346 X10*3/uL (160-400); Red Blood Count 4.37 X10*6/uL (4.20-5.50); Red Cell Distribution Width 14.2 % (11.0-16.0); White Blood Count 4.4 X10*3/uL (4.8-10.8)
[2023-10-11 11:15] LABS: Rheumatoid Factor < 13.0 IU/mL (<15.0)
[2023-10-11 11:18] LABS: Alanine Aminotransferase 12 U/L (0-31); Albumin Level 4.1 g/dL (3.5-5.0); Alkaline Phosphatase 40 U/L (39-117); Anion Gap 10 (12-20); Aspartate Amino Transferase 16 U/L (5-31); Bilirubin Total 1.2 mg/dL (0.0-1.0); Blood Urea Nitrogen 13 mg/dL (9-16); Calcium 9.2 mg/dL (8.4-10.2); Carbon Dioxide 26 mmol/L (22-29); Chloride 106 mmol/L (96-108); Cholesterol 226 mg/dL (<200); Estimated Glomerular Filt Rate > 60; Glucose Fasting 78 mg/dL (60-99); HDL Cholesterol 67 mg/dL (>40); Iron 81 mcg/dL (30-160); LDL Cholesterol Calculated 139 mg/dL (<100); Percent Iron Saturation 22 % (15-50); Sodium 138 mmol/L (135-145); Total Iron Binding Capacity 369 mcg/dL (228-428); Total Protein 7.3 g/dL (6.5-8.0); Triglycerides 102 mg/dL (<150); Unsaturated Iron Binding 288 ug/dL
[2023-10-11 11:33] LABS: Vitamin D 25-OH Total 36.4 ng/mL (>30)
[2023-10-11 11:47] LABS: Folate 6.6 ng/mL (> or = 4.0); Vitamin B12 1153 pg/mL (200-900)
[2023-10-11 11:51] LABS: Erythrocyte Sedimentation Rate 12 MM/HR (0-20)
[2023-10-11 14:06] LABS: Creatinine Urine 272.49 mg/dL; Microalbum/Creatinine Ratio Ur 4.7 ug/mg cr (<30)
[2023-10-12 16:17] LABS: CRP High Sensitivity 1.1 mg/L
[2023-10-12 19:08] LABS: Cyclic Citrullinated Peptide <16 UNITS
[2023-10-13 13:09] LABS: Anti DNA DS Antibody 5 IU/mL
[2023-10-14 12:13] LABS: Anti Nuclear Antibody Screen NEGATIVE (NEGATIVE)
== END 2023-10-11 10:13 | disposition home or self-care (01) ==
LOC: HO.LAB 10:12
PROVIDERS: PCP Internal Medicine; Visit Provider Internal Medicine
DX: E11.65 Type 2 diabetes mellitus with hyperglycemia (principal); D64.9 Anemia, unspecified; M25.50 Pain in unspecified joint; E78.5 Hyperlipidemia, unspecified; E53.8 Deficiency of other specified B group vitamins; E55.9 Vitamin D deficiency, unspecified
CPT/HCPCS: 36415; 80053; 80061; 82043; 82306; 82570; 82607; 82746; 83540; 85025; 85652; 86038; 86141; 86200; 86225; 86431

== ENCOUNTER 2023-10-20 07:44 | Outpatient (REF) | payer OTHER, SELFPAY | END 2023-10-20 07:45 | disposition home or self-care (01) | LOC: HO.MAMMO 07:44 | PROVIDERS: PCP Internal Medicine; Visit Provider Internal Medicine | DX: Z12.31 Encounter for screening mammogram for malignant neoplasm of breast (principal) | CPT/HCPCS: 77063; 77067 ==

== ENCOUNTER → 2023-10-20 08:00 | Outpatient (BNV) | payer OTHER, SELFPAY | PROVIDERS: PCP Internal Medicine; Visit Provider Radiology Diagnostic Radiology | DX: Z12.31 Encounter for screening mammogram for malignant neoplasm of breast (principal) | CPT/HCPCS: 77063; 77067 ==

== ENCOUNTER 2023-11-24 13:20 | Outpatient (AMB) | payer OTHER, SELFPAY ==
--- NOTE | 2023-11-24 13:34 | A.OFFVIS_ITS ---
Intake Vital Signs 11/24/23 13:35 Height 5 ft 3 in Weight 136 lb 7.458 oz BMI 24.2 BP 124/80 Blood Pressure Location Rt brachial Position Sitting Pulse 62 Pulse Source Pulse Oximeter Temp 98.9 F Temp Source Skin Intake Visit Reasons: Joint Pain Intake Note: New patient, internally referred, presents to office today for joint pain. Joints affected:right shoulder, dianne knees, dianne hand knucles Pain began approx: about 3 years ago Has tried: Diclofenac, naproxen Storm Sash Maker Required: Yes Storm Sash Maker Language: Rosin Barrel Filler Name: Karson [id number] Information Interpreted: clinical only Accompanied by: Self / Same As Patient Allergies No Known Allergies Allergy (Verified 11/24/23 13:39) HPI HPI Comments History of Present Illness Details Ms. 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 She describes pains to her hands, knees and right shoulder ongoing for the last 3 years. She used to think that her pain was caused from her work as a hairdresser, being on her feet on her feet a lot and using her hands. However she has not worked as a hairdresser in over 1 year and she still feels the pains. So she is wondering why she is still feeling the pain if it was related to her work. She takes diclofenac which she says sometimes helped with the pain but she does not take it as often because it bothered her stomach. She does like to work out at the gym but has not done it in recent months because of the increased pain. The patient denies joint swelling, warmth and redness, sores in her mouth, dry eyes and dry mouth and sun sensitivity. She denies any GI concerns. She has no issues with skin rashes or digestion. PCP visit 10/03/2023 This is a 43-year-old female, with diabetes mellitus type 2, chronic GERD and hyperlipidemia that comes today complaining of diffuse joint pain that has been present for few months with no swelling. The pain is symmetric. She also has frequent headaches. No chest pain or shortness of breath. A1c within goal. GERD stable with PPIs as needed. Lipid panel will be order and her LDL goal should be less than 70. [facility] Medical History (Updated 11/24/23 @ 14:20 by Thalia Shade, PREMIUM REPRESENTATIVE-BC) Bilateral hand pain Chronic GERD Dyslipidemia Blurry vision Right shoulder pain Obese Diabetes mellitus Surgical History History of bilateral tubal ligation Hx of breast reduction, elective Family History Mother Hypertension Pre-diabetes Father Hypertension Diabetes Social History (Updated 11/24/23 @ 13:40 by CARLITA Vital) Housing: Apartment Alcohol intake: current Alcohol intake frequency: holidays/special occasions only Alcohol type: wine Patient Tobacco Use Status: Never used Tobacco e-Cigarette/Vaping Use: Never Used Second Hand Smoke Exposure: Yes service: No Current occupational status: employed 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 External ear normal. NOSE/SINUS:? Airflow through both nares, no nasal discharge, no bleeding THROAT:? Oral mucosa moist, no ulcerations NECK:? No thyromegaly or masses, no adenopathy, trachea midline. HEART:? Regular rhythm, S1-S2 heard, no murmurs, rubs or gallops. LUNG:? Clear to percussion and auscultation EXTREMITIES:? No edema, no calf tenderness, normal peripheral pulses. NEURO:? Oriented and alert x3.? No focal weakness.? Reflexes symmetric.? Gait normal. SKIN:? There are no skin lesions evident. No objective signs of Raynaud's phen omenon. JOINT EXAM: Cervical Spine:.? Full range of motion without pain; no tenderness. Thoracic Spine:.? No scoliosis.? No tenderness on palpation. Lumbar Spine:.? Alignment normal.? Full range of motion without pain, but some mild tenderness. Chest Wall:.? No tenderness, swelling, increased warmth or erythema. Hands:.? Normal pain-free range of motion without tenderness, swelling, increased warmth or erythema. Able to make a full fist and has a good exercise science internship strength. Wrists:.? Normal pain-free range of motion without tenderness, swelling, increased warmth or erythema. Elbows:. Normal pain-free range of motion without tenderness, swelling, increased warmth or erythema. Shoulders:.?? Full range of motion without pain. Right colon Tenderness to anterior joint line but no weakness, swelling, increased warmth or erythema. Hips:.? Full range of motion without pain. Hip bursa:.? No tenderness. Knees:.?? Normal pain-free range of motion with some tenderness patellofemoral joint line but no swelling, increased warmth or erythema.? There is no effusion or crepitation Ankles:.? Normal pain-free range of motion without tenderness, swelling, increased warmth or erythema. Feet:.? Normal pain-free range of motion without tenderness, swelling, increased warmth or erythema. Tender points:? No tenderness to digital palpation at the occiput, trapezius, second rib, lateral epicondyle, knees, greater trochanter and gluteal area bilaterally. ? Results Reviewed Results Reviewed: Laboratory Tests 10/11/23 10:28 WBC 4.4 L RBC 4.37 Hgb 11.0 L Hct 35.0 L ESR 12 AST 16 ALT 12 Rheumatoid Factor < 13.0 Cycl Citrul Peptide IgG <16 YUMIKO Screen NEGATIVE Double Strand DNA Ab 5 H Assessment & Plan Assessment & Plan (1) Polyarthralgia: Code(s): M25.50 - Pain in unspecified joint (2) Right shoulder pain: Code(s): M25.511 - Pain in right shoulder Qualifiers: Chronicity: chronic Qualified Code(s): M25.511 - Pain in right shoulder; G89.29 - Other chronic pain (3) Right knee pain: Code(s): M25.561 - Pain in right knee Qualifiers: Chronicity: chronic Qualified Code(s): M25.561 - Pain in right knee; G89.29 - Other chronic pain (4) Left knee pain: Code(s): M25.562 - Pain in left knee Qualifiers: Chronicity: chronic Qualified Code(s): M25.562 - Pain in left knee; G89.29 - Other chronic pain Plan #Multiple joint pain: The patient has some tenderness on PE to her right shoulder and bilateral knee. This is likely osteoarthritis onset as I do not see a clinical picture for inflammatory arthritis. On PE, there is no synovitis, or significant tenderness to hand IP joints, foot and ankle. Her serology is negative for rheumatoid factor, CCP and the acute phase reactant are within normal limits. She does have an indeterminate value for double-stranded DNA but her YUMIKO was negative. I do not think this hold any significance at this time. However I will obtain lab and x-rays for additional evaluation. I will also prescribe her meloxicam as that may be gentler on her stomach. I encourage d patient to watch for signs and symptoms of inflammation to include but not limited to red, warm, swollen and tender joints. She would also benefit from some shoulder and hand exercise, and PT for her knees to help build her quad strength. Follow-up in 1 month to review diagnostics. I spent 45 minutes reviewing history, evaluating and assessing patient, documenting Orders: Orders Complement C3 11/24/23 M25.50 - Pain in unspecified joint Complement C4 11/24/23 M25.50 - Pain in unspecified joint Hepatitis A,B,C Profile 11/24/23 M25.50 - Pain in unspecified joint T Spot TB 11/24/23 M25.50 - Pain in unspecified joint Thyroid Stimulating Hormone 11/24/23 M25.50 - Pain in unspecified joint XR hand RT min 3V 11/24/23 M79.641 - Pain in right hand, M79.642 - Pain in left hand XR knee RT 3V 11/24/23 M25.561 - Pain in right knee, M25.562 - Pain in left knee Aldolase 11/24/23 M25.50 - Pain in unspecified joint C Reactive Protein 11/24/23 M25.50 - Pain in unspecified joint Creatine Kinase Total 11/24/23 M25.50 - Pain in unspecified joint Erythrocyte Sedimentation Rate 11/24/23 M25.50 - Pain in unspecified joint Immunoglobulins,IgG IgA IgM 11/24/23 M25.50 - Pain in unspecified joint UA w Microscopic 11/24/23 M25.50 - Pain in unspecified joint Uric Acid 11/24/23 M25.50 - Pain in unspecified joint Complete Blood Count Auto Diff 11/24/23 M25.50 - Pain in unspecified joint Comprehensive Met. Panel 11/24/23 M25.50 - Pain in unspecified joint XR hand LT min 3V 11/24/23 M79.641 - Pain in right hand, M79.642 - Pain in left hand XR knee LT 3V 11/24/23 M25.561 - Pain in right knee, M25.562 - Pain in left knee Medications: New meloxicam 15 mg PO DAILY 30 tabs 1RF M25.50 - Pain in unspecified joint, M25.511 - Pain in right shoulder, M25.561 - Pain in right knee, M25.562 - Pain in left knee Coding Level of Care Code New Pt Level 4 (98285) Diagnoses Polyarthralgia M25.50 Chronic right shoulder pain M25.511; G89.29 Chronicity: chronic Chronic pain of right knee M25.561; G89.29 Chronicity: chronic Chronic pain of left knee M25.562; G89.29 Chronicity: chronic
[2023-11-24 13:35] VITALS: BP 124/80; PULSE 62; TEMP 37.2; BMI 24.2
== END 2023-11-24 14:22 | disposition home or self-care (01) ==
PROVIDERS: PCP Internal Medicine; Visit Provider Nurse Practitioner Family
DX: M25.50 Pain in unspecified joint (principal); M25.511 Pain in right shoulder; G89.29 Other chronic pain; M25.561 Pain in right knee; M25.562 Pain in left knee
CPT/HCPCS: 99204

== ENCOUNTER → 2023-11-24 13:20 | Outpatient (BNVA) | payer OTHER, SELFPAY | PROVIDERS: PCP Internal Medicine; Visit Provider Nurse Practitioner Family | DX: M25.50 Pain in unspecified joint (principal); M25.511 Pain in right shoulder; M25.562 Pain in left knee; M25.561 Pain in right knee; G89.29 Other chronic pain | CPT/HCPCS: 99202 ==

== ENCOUNTER 2023-12-14 10:34 | Outpatient (REF) | payer OTHER, SELFPAY ==
--- NOTE | ~2023-12-14 | XR_ITS ---
EXAMINATION: Bilateral knee x-ray CLINICAL INFORMATION: Pain COMPARISON: None. TECHNIQUE: 3 views of each knee FINDINGS: Left: Bone alignment is normal. No fracture or dislocation. Joint spaces are normal. There are small osteophytes at the quadriceps and patellar tendon insertions. No joint effusion. Right: Bone alignment is normal. No acute fracture or dislocation. Well-corticated ossification adjacent to the lateral femoral condyle may be related to old trauma. Normal joint spaces. No joint effusion. XR/XR knee LT 3V IMPRESSION: Left knee: Small osteophytes at the patellar and quadriceps tendon insertions. Right knee: Question old posttraumatic change to the lateral femoral condyle.
--- NOTE | ~2023-12-14 | XR_ITS ---
EXAMINATION: Bilateral hand x-ray CLINICAL INFORMATION: Pain COMPARISON: None. TECHNIQUE: 3 views of each hand FINDINGS: Left: Bone alignment is normal. No fracture or dislocation. Small osteophyte at the radial side of the first metacarpal head. Normal joint spaces. Normal soft tissues. Right: Bone alignment is normal. No fracture or dislocation. Small osteophyte at the radial side of the first metacarpal head. Normal joint spaces. Normal soft tissues. XR/XR hand LT min 3V IMPRESSION: Small osteophytes at the radial side of the first metacarpal heads. Otherwise unremarkable exam.
--- NOTE | ~2023-12-14 | XR_ITS ---
EXAMINATION: Bilateral hand x-ray CLINICAL INFORMATION: Pain COMPARISON: None. TECHNIQUE: 3 views of each hand FINDINGS: Left: Bone alignment is normal. No fracture or dislocation. Small osteophyte at the radial side of the first metacarpal head. Normal joint spaces. Normal soft tissues. Right: Bone alignment is normal. No fracture or dislocation. Small osteophyte at the radial side of the first metacarpal head. Normal joint spaces. Normal soft tissues. XR/XR hand RT min 3V IMPRESSION: Small osteophytes at the radial side of the first metacarpal heads. Otherwise unremarkable exam.
--- NOTE | ~2023-12-14 | XR_ITS ---
EXAMINATION: Bilateral knee x-ray CLINICAL INFORMATION: Pain COMPARISON: None. TECHNIQUE: 3 views of each knee FINDINGS: Left: Bone alignment is normal. No fracture or dislocation. Joint spaces are normal. There are small osteophytes at the quadriceps and patellar tendon insertions. No joint effusion. Right: Bone alignment is normal. No acute fracture or dislocation. Well-corticated ossification adjacent to the lateral femoral condyle may be related to old trauma. Normal joint spaces. No joint effusion. XR/XR knee RT 3V IMPRESSION: Left knee: Small osteophytes at the patellar and quadriceps tendon insertions. Right knee: Question old posttraumatic change to the lateral femoral condyle.
[2023-12-14 10:54] LABS: MANUAL DIFF FLAG NO
[2023-12-14 11:52] LABS: Basophils Percent Auto 0.4 % (0-2); Eosinophils Percent Auto 0.9 % (0-4); Hematocrit 34.3 % (37.0-47.0); Hemoglobin 10.7 g/dl (12.0-16.0); Imm Gran Abs Auto 0.01 X10*3/uL (0.00-0.03); Imm Gran Pct Auto 0.2 % (0.0-0.4); Lymphocytes Absolute Auto 2.1 X10*3/uL (1.2-4.9); Lymphocytes Percent Auto 46.6 % (20-40); Mean Corpuscular HGB Conc 31.2 g/dl (31.0-35.0); Mean Corpuscular Hemoglobin 24.5 pg (27.0-33.0); Mean Corpuscular Volume 78.5 fL (80.0-98.0); Mean Platelet Volume 9.9 fL (9.4-12.3); Monocytes Absolute Auto 0.3 X10*3/uL (0.1-1.2); Monocytes Percent Auto 5.5 % (2-11); Neutrophils Absolute Auto 2.1 x10*3/uL (2.0-8.3); Neutrophils Percent Auto 46.4 % (45-73); Platelet Count 310 X10*3/uL (160-400); Red Blood Count 4.37 X10*6/uL (4.20-5.50); White Blood Count 4.5 X10*3/uL (4.8-10.8)
[2023-12-14 11:53] LABS: Appearance Urine Clear; Color Urine Dark Yellow; Glucose Urine UA Negative (Negative); Leukocyte Esterase Urine Negative (Negative); Nitrite Urine Negative (Negative); PH 6.5 (5.0-9.0); Specific Gravity - Urine 1.025 (1.005-1.025); UMIC TRIGGER UA YES; Urine Blood Small (1+) (Negative); Urine Ketones Trace mg/dL (Negative); Urine Protein Negative (Neg-Trace)
[2023-12-14 11:56] LABS: Bacteria Urine Trace (None Seen); Hyaline Casts Urine 0-2 /LPF (0-2); RBC Urine >20 /HPF (0-2); WBC Urine 0-5 /HPF (0-5)
[2023-12-14 12:33] LABS: Erythrocyte Sedimentation Rate 10 MM/HR (0-20)
[2023-12-14 12:57] LABS: Alanine Aminotransferase 8 U/L (0-31); Albumin Level 4.1 g/dL (3.5-5.0); Alkaline Phosphatase 31 U/L (39-117); Anion Gap 10 (12-20); Aspartate Amino Transferase 12 U/L (5-31); Bilirubin Total 0.8 mg/dL (0.0-1.0); Blood Urea Nitrogen 11 mg/dL (9-16); C Reactive Protein 0.13 mg/dL (< or = 0.50); Carbon Dioxide 25 mmol/L (22-29); Chloride 109 mmol/L (96-108); Estimated Glomerular Filt Rate > 60; Glucose Random 63 mg/dL (60-115); Potassium 3.6 mmol/L (3.3-5.1); Sodium 140 mmol/L (135-145); Thyroid Stimulating Hormone 1.02 uIU/mL (0.32-4.0); Total Protein 6.9 g/dL (6.5-8.0); Uric Acid 4.2 mg/dL (2.4-5.7)
[2023-12-14 13:00] LABS: HBS Num1 0.15 mIU/mL (0-7.99); HBc Num1 0.05 S/CO (0.00-0.79); HBsAGNum1 7.84 S/CO (0.00-0.99); Hepatitis A Antibody IgM 0.19 Index (0-0.79); Hepatitis B Core Antibody Nonreactive (Nonreactive); ~HepC Num1 0.06 S/CO (0.00-0.79); ~Hepatitis A Antibody IgM Nonreactive (Nonreactive); ~Hepatitis B Surface Antibody NONREACTIVE (Nonreactive); ~Hepatitis C Antibody Nonreactive (Nonreactive)
[2023-12-14 14:14] LABS: HBsAGNum2 Reactive; HBsAGNum3 Reactive
[2023-12-14 14:15] LABS: Hepatitis B Surface Antigen Retest CNFM (Negative)
[2023-12-16 16:08] LABS: Complement C3 96 mg/dL (83-193); IgA 120 mg/dL (47-310); IgG 1213 mg/dL (600-1640); IgM 92 mg/dL (50-300)
[2023-12-16 22:33] LABS: TS Negative Control Passed; TS Panel A 0; TS Panel B 0; TS Positive Control Passed; TSpotTB Negative (Negative)
[2023-12-19 08:36] LABS: HBsAG NON-REACTIVE
[2023-12-20 22:39] LABS: Aldolase 3.7 U/L (<=8.1)
== END 2023-12-14 10:35 | disposition home or self-care (01) ==
LOC: HO.XRAY 10:34
PROVIDERS: PCP Internal Medicine; Visit Provider Nurse Practitioner Family
DX: M25.50 Pain in unspecified joint (principal); M79.641 Pain in right hand; M79.642 Pain in left hand; M25.561 Pain in right knee; M25.562 Pain in left knee
CPT/HCPCS: 36415; 73130; 73562; 80053; 81001; 82085; 82550; 82784; 84443; 84550; 85025; 85652; 86140; 86160; 86481; 86704; 86706; 86709; 86803; 87340

== ENCOUNTER 2023-12-27 14:55 | Outpatient (REF) | payer OTHER, SELFPAY ==
[2023-12-30 08:04] LABS: TS Negative Control Passed; TS Panel A 2; TS Panel B 0; TS Positive Control Passed; TSpotTB Negative (Negative)
== END 2023-12-27 14:56 | disposition home or self-care (01) ==
LOC: HO.LAB 14:55
PROVIDERS: PCP Internal Medicine; Visit Provider Internal Medicine
DX: Z11.1 Encounter for screening for respiratory tuberculosis (principal)
CPT/HCPCS: 36415; 86481

== ENCOUNTER 2024-01-04 10:31 | Outpatient (AMB) | payer OTHER, SELFPAY ==
--- NOTE | 2024-01-04 10:46 | A.OFFVIS_ITS ---
Intake Vital Signs 01/04/24 10:53 Height 5 ft 3 in Weight 137 lb 9.095 oz BMI 24.4 BP 100/60 Blood Pressure Location Rt brachial Position Sitting Pulse 68 Pulse Source Palpation Intake Visit Reasons: PolyArthralgia/Meloxicam Intake Note: Patient last seen 11/24/23 by Shade, presents today for follow up and test results. Clothing Pattern Preparer Required: Yes Clothing Pattern Preparer Language: Polisher Balance Screwhead Name: Refusal signed Accompanied by: Self / Same As Patient Allergies No Known Allergies Allergy (Verified 01/04/24 10:46) HPI HPI Comments History of Present Illness Details Ms. 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 She has had no new developments since last visit. She does report that she did take the meloxicam as prescribed and her joints feel better on meloxicam. Initial history 11/24/2023 She describes pains to her hands, knees and right shoulder ongoing for the last 3 years. She used to think that her pain was caused from her work as a hairdresser, being on her feet on her feet a lot and using her hands. However she has not worked as a hairdresser in over 1 year and she still feels the pains. So she is wondering why she is still feeling the pain if it was related to her work. She takes diclofenac which she says sometimes helped with the pain but she does not take it as often because it bothered her stomach. She does like to work out at the gym but has not done it in recent months because of the increased pain. The patient denies joint swelling, warmth and redness, sores in her mouth, dry eyes and dry mouth and sun sensitivity. She denies any GI concerns. She has no issues with skin rashes or digestion. PCP visit 10/03/2023 This is a 43-year-old female, with diabetes mellitus type 2, chronic GERD and hyperlipidemia that comes today complaining of diffuse joint pain that has been present for few months with no swelling. The pain is symmetric. She also has frequent headaches. No chest pain or shortness of breath. A1c within goal. GERD stable with PPIs as needed. Lipid panel will be order and her LDL goal should be less than 70. [facility] Medical History (Updated 11/24/23 @ 14:20 by QUIRINO Carmen-BC) Bilateral hand pain Chronic GERD Dyslipidemia Blurry vision Right shoulder pain Obese Diabetes mellitus Surgical History History of bilateral tubal ligation Hx of breast reduction, elective Family History Mother Hypertension Pre-diabetes Father Hypertension Diabetes Social History Housing: Apartment Alcohol intake: current Alcohol intake frequency: holidays/special occasions only Alcohol type: wine Patient Tobacco Use Status: Never used Tobacco e-Cigarette/Vaping Use: Never Used Second Hand Smoke Exposure: Yes service: No Current occupational status: employed 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 Constitutional: Non-toxic appearing. No acute distress. Well-developed and well-nourished. HEENT: Normocephalic and atraumatic. External auditory canals without erythema or edema bilaterally. Skin: Warm and dry. No rashes or lesions noted. Neck: Full and painless range of motion. Cardio: Regular rate and rhythm. No murmurs, gallops, or rubs. No lower extremity edema. No JVD. Pulmonary: No respiratory distress. No accessory muscle usage. Musculoskeletal: Normal range of motion in joints throughout the body. No deformity or other signs of injury. Neuro: Alert and oriented x4. Cranial nerves 2-12 grossly intact. No focal deficits appreciated. Assessment & Plan Assessment & Plan (1) Polyarthralgia: Code(s): M25.50 - Pain in unspecified joint (2) Right shoulder pain: Code(s): M25.511 - Pain in right shoulder Qualifiers: Chronicity: chronic Qualified Code(s): M25.511 - Pain in right shoulder; G89.29 - Other chronic pain (3) Right knee pain: Code(s): M25.561 - Pain in right knee Qualifiers: Chronicity: chronic Qualified Code(s): M25.561 - Pain in right knee; G89.29 - Other chronic pain (4) Left knee pain: Code(s): M25.562 - Pain in left knee Qualifiers: Chronicity: chronic Qualified Code(s): M25.562 - Pain in left knee; G89.29 - Other chronic pain Plan #Multiple joint pain/OA: This is likely osteoarthritis onset as I do not see a clinical picture for inflammatory arthritis. On PE, there is no synovitis, or significant tenderness to hand IP joints, foot and ankle. Her serology is negative for rheumatoid factor, CCP and the acute phase reactant are within normal limits. She does have an indeterminate value for double-stranded DNA but her JOSE was negative. I do not think this hold any significance at this time. Additional labs and x-rays were also unremarkable. C3, C4 was negative. The joint pain is improved with meloxicam so she can continue with meloxicam and knows to eat with food. I encouraged patient to watch for signs and symptoms of inflammation to include but not limited to red, warm, swollen and tender joints. She would also benefit from some shoulder and hand exercise, and PT for her knees to help build her quad strength. Follow-up in 1 year or sooner if needed. I spent 45 minutes reviewing chart, discussing diagnostics and documenting Orders: Orders C Reactive Protein 1 Year M25.50 - Pain in unspecified joint, M79.641 - Pain in right hand, M79.642 - Pain in left hand Erythrocyte Sedimentation Rate 1 Year M25.50 - Pain in unspecified joint, M79.641 - Pain in right hand, M79.642 - Pain in left hand Complete Blood Count Auto Diff 1 Year M25.50 - Pain in unspecified joint, M79.641 - Pain in right hand, M79.642 - Pain in left hand Comprehensive Met. Panel 1 Year M25.50 - Pain in unspecified joint, M79.641 - Pain in right hand, M79.642 - Pain in left hand Coding Level of Care Code Est Pt Level 3 (07099) Diagnoses Polyarthralgia M25.50 Chronic right shoulder pain M25.511; G89.29 Chronicity: chronic Chronic pain of right knee M25.561; G89.29 Chronicity: chronic Chronic pain of left knee M25.562; G89.29 Chronicity: chronic
[2024-01-04 10:53] VITALS: BP 100/60; PULSE 68; BMI 24.4
== END 2024-01-04 11:23 | disposition home or self-care (01) ==
PROVIDERS: PCP Internal Medicine; Visit Provider Nurse Practitioner Family
DX: M25.50 Pain in unspecified joint (principal); M25.511 Pain in right shoulder; G89.29 Other chronic pain; M25.561 Pain in right knee; M25.562 Pain in left knee
CPT/HCPCS: 99213

== ENCOUNTER → 2024-01-04 10:31 | Outpatient (BNVA) | payer OTHER, SELFPAY | PROVIDERS: PCP Internal Medicine; Visit Provider Nurse Practitioner Family | DX: M25.50 Pain in unspecified joint (principal); M25.511 Pain in right shoulder; M25.561 Pain in right knee; M25.562 Pain in left knee; G89.29 Other chronic pain | CPT/HCPCS: 99212 ==

== ENCOUNTER 2024-01-30 10:45 | Outpatient (AMB) | payer OTHER, SELFPAY ==
[2024-01-30 10:46] VITALS: BP 112/70; BMI 24.3
--- NOTE | 2024-01-30 10:46 | MHC.PC.OV ---
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 Required: No Accompanied by: Self / Same As Patient Allergies metformin Adverse Reaction (Intermediate, Verified 01/30/24 11:09) Abdominal Pain trestiba Adverse Reaction (Intermediate, Uncoded 01/30/24 11:14) Nausea and Vomiting Medication List - Last Reconciled 01/30/24 by Yumiko Max MD atorvastatin 20 mg PO BEDTIME 90 days blood sugar diagnostic (FreeStyle Lite Strips) Use 1 test strip once a day blood-glucose meter (FreeStyle Lite Meter kit) As directed lancets (FreeStyle Lancets) Use 1 lancet once a day liraglutide (weight loss) (Saxenda) 1.2 mg subcut DAILY meloxicam 15 mg PO DAILY omeprazole 20 mg PO DAILY 90 days pen needle, diabetic (BD Debi 2nd Gen Pen Needle) Use 1 pen needle daily sumatriptan succinate 25 mg PO Q2-4H PRN 30 days Tobacco use date assessed: 10/03/23 Dental Screening Dental Screen Date: 10/03/23 HPI HPI Comments History of Present Illness Details This is a 43-year-old female with diabetes mellitus type 2, hyperlipidemia, chronic GERD and migraines that comes today for follow-up on her conditions. A1c within goal. Lipid panel will be order and her LDL goal should be less than 70. GERD stable with PPIs. Migraines well control with sumatriptan as needed. Denies any chest pain or shortness of breath. [facility] Medical History (Updated 01/30/24 @ 12:03 by Yumiko Max MD) Bilateral hand pain Chronic GERD Dyslipidemia Blurry vision Right shoulder pain Obese Diabetes mellitus Surgical History History of bilateral tubal ligation Hx of breast reduction, elective Family History Mother Hypertension Pre-diabetes Father Hypertension Diabetes Social History Housing: Apartment Alcohol intake: current Alcohol intake frequency: holidays/special occasions only Alcohol type: wine Patient Tobacco Use Status: Never used Tobacco e-Cigarette/Vaping Use: Never Used Second Hand Smoke Exposure: Yes service: No Current occupational status: employed 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 Chandan Bañuelos, Edel Doshi, Black Fermin and colleagues, with an educational stan from [employer]. Review of Systems Const All systems reviewed & are unremarkable except as noted in HPI and below Card Denies chest pain at rest, Denies chest pain with activity, Denies edema, Denies irregular heart rhythm, Denies claudication, Denies dyspnea, Denies dyspnea on exertion, Denies orthopnea, Denies paroxysmal nocturnal dyspnea and Denies slow heart rate Resp Denies cough, Denies dyspnea and Denies dyspnea on exertion GI Denies abdominal pain, Denies change in bowel habits, Denies excessive flatus, Denies nausea and Denies vomiting Denies urinary incontinence, Denies urinary hesitancy and Denies urinary urgency Musc Denies atrophy, Denies deformity and Denies limited range of motion Physical exam (Primary Care) Vital Signs: Last Vital Signs BP 112/70 01/30/24 10:46 BMI result Body Mass Index 24.3 Tobacco/Smoking Status: Tobacco use Status Tobacco use date assessed 10/03/23 01/30/24 10:48 Patient Tobacco Use Status Never used Tobacco 01/30/24 10:48 Tobacco use type 04/08/22 12:28 e-Cigarette/Vaping Use Never Used 01/30/24 10:48 Thrive Assessment: Date of Thrive Assessment Date Thrive assessed 10/03/23 01/30/24 10:48 Resp Effort & Inspection: normal respiratory effort Auscultation: clear to auscultation bilaterally Cardio Jugular venous distension: no JVD Rate: regular rate Rhythm: regular rhythm Heart sounds: S1 normal heart sound present and S2 normal heart sound present Neuro General: no focal motor deficits Extrem General: Yes full ROM Psych Appearance: grossly normal Results AMB Hemoglobin A1c AMB Hemoglobin A1c 5.4 % Last Edit by CARLITA Arias on 01/30/24 11:02 Results Reviewed Results Reviewed: Laboratory Last Values Hgb A1c (Clinic) 5.4 % (4.0-6.0) 01/30/24 10:57 Assessment and Plan Assessment & Plan (1) Hyperlipidemia LDL goal <70: Code(s): E78.5 - Hyperlipidemia, unspecified Plan: Continue statins. Repeat lipid panel. LDL goal is less than 70. (2) Chronic GERD: Code(s): K21.9 - Gastro-esophageal reflux disease without esophagitis Plan: Continue PPIs.. (3) Diabetes mellitus: Code(s): E11.9 - Type 2 diabetes mellitus without complications Qualifiers: Diabetes mellitus type: type 2 Diabetes mellitus medical terminologist insulin use: without medical terminologist use Diabetes mellitus complication status: with hyperglycemia Qualified Code(s): E11.65 - Type 2 diabetes mellitus with hyperglycemia Plan: Continue Saxenda. A1c goal is equal or less than 7 %. (4) Migraines: Code(s): G43.909 - Migraine, unspecified, not intractable, without status migrainosus Plan: Continue sumatriptan as needed. Orders: Orders Comprehensive [place]. Panel Fast 4 Months E11.65 - Type 2 diabetes mellitus with hyperglycemia AMB Hemoglobin A1c Today E11.65 - Type 2 diabetes mellitus with hyperglycemia Lipid Panel 4 Months E78.5 - Hyperlipidemia, unspecified Microalbumin, Random (w Creat) 4 Months E11.9 - Type 2 diabetes mellitus without complications Medications: New liraglutide (weight loss) (Saxenda) 1.2 mg (0.2 mL) subcut DAILY 6 mL 3RF 30 days Coding Level of Care Code Est Pt Level 4 (14297) Diagnoses Hyperlipidemia LDL goal <70 E78.5 Chronic GERD K21.9 Type 2 diabetes mellitus with hyperglycemia, without long-term current use of insulin E11.65 Diabetes mellitus type: type 2 Diabetes mellitus medical terminologist insulin use: without mcc use Diabetes mellitus complication status: with hyperglycemia Migraines G43.909 Time Spent (min) 20
== END 2024-01-30 11:21 | disposition home or self-care (01) ==
PROVIDERS: PCP Internal Medicine; Visit Provider Internal Medicine
DX: E78.5 Hyperlipidemia, unspecified (principal); K21.9 Gastro-esophageal reflux disease without esophagitis; E11.65 Type 2 diabetes mellitus with hyperglycemia; G43.909 Migraine, unspecified, not intractable, without status migrainosus
CPT/HCPCS: 83036; 99214

== ENCOUNTER 2024-05-24 10:07 | Outpatient (AMB) | payer OTHER, SELFPAY ==
--- NOTE | 2024-05-24 10:10 | A.OFFPC_ITS ---
Vital Signs 05/24/24 10:16 Height 5 ft 3 in Weight 139 lb BMI 24.6 BP 110/82 Blood Pressure Location Lt brachial Position Sitting Intake Visit Reasons: Annual Intake Note: Patient here for an annual physical exam Payroll Master Required: No Accompanied by: Self / Same As Patient Allergies metformin Adverse Reaction (Intermediate, Verified 05/24/24 10:27) Abdominal Pain trestiba Adverse Reaction (Intermediate, Uncoded 05/24/24 10:27) Nausea and Vomiting Medication List - Last Reconciled 05/24/24 by Yumiko Max MD atorvastatin 20 mg PO BEDTIME 90 days blood sugar diagnostic (FreeStyle Lite Strips) Use 1 test strip once a day blood-glucose meter (FreeStyle Lite Meter kit) As directed lancets (FreeStyle Lancets) Use 1 lancet once a day meloxicam 15 mg PO DAILY omeprazole 20 mg PO DAILY 90 days pen needle, diabetic (BD Debi 2nd Gen Pen Needle) Use 1 pen needle daily sumatriptan succinate 25 mg PO Q2-4H PRN 30 days Tobacco use date assessed: 10/03/23 Dental Screening Dental Screen Date: 05/24/24 Did you have a dental visit in the last 12 months?: Yes Did you have a dental problem in the last 6 months where you did not have access to dental care?: No Was dental information given to patient?: Patient has dentist HPI HPI Comments History of Present Illness Details This is a 44-year-old female with diabetes mellitus type 2 that comes for her physical exam. A1c within goal. Last diabetic eye exam was less than a year ago. Pap smear done 2020. Mammogram done 2023 and was normal. Complains of daily persistent headaches that happens at this 5 times during the week. Has been present over 2 weeks ago. No neurological deficit associated with it. She does have migraines and use sumatriptan as needed. I will start her on Topamax for migraine prophylaxis and order an MRI. [facility] Medical History (Updated 05/24/24 @ 12:12 by Yumiko Max MD) Bilateral hand pain Chronic GERD Dyslipidemia Blurry vision Right shoulder pain Obese Diabetes mellitus Surgical History History of bilateral tubal ligation Hx of breast reduction, elective Family History Mother Hypertension Pre-diabetes Father Hypertension Diabetes Social History Housing: Apartment Alcohol intake: current Alcohol intake frequency: holidays/special occasions only Alcohol type: wine Patient Tobacco Use Status: Never used Tobacco e-Cigarette/Vaping Use: Never Used Second Hand Smoke Exposure: Yes service: No Current occupational status: employed 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 Chandan Bañuelos, Edel Doshi, Black Fermin and colleagues, with an educational stan from [employer]. Review of Systems Const All systems reviewed & are unremarkable except as noted in HPI and below Card Denies chest pain at rest, Denies chest pain with activity, Denies edema, Denies irregular heart rhythm, Denies claudication, Denies dyspnea, Denies dyspnea on exertion, Denies orthopnea, Denies paroxysmal nocturnal dyspnea and Denies slow heart rate Resp Denies cough, Denies dyspnea and Denies dyspnea on exertion GI Denies abdominal pain, Denies change in bowel habits, Denies excessive flatus, Denies nausea and Denies vomiting Denies urinary incontinence, Denies urinary hesitancy and Denies urinary urgency Musc Denies abnormal gait, Denies atrophy, Denies deformity and Denies limited range of motion Skin/Breast Denies bleeding lesions, Denies changing lesions and Denies rash Neuro Denies abnormal gait, Denies behavioral changes and Denies lack of coordination Psych Denies behavioral changes Physical exam (Primary Care) Vital Signs: Last Vital Signs BP 110/82 05/24/24 10:16 BMI result Body Mass Index 24.6 Tobacco/Smoking Status: Tobacco use Status Tobacco use date assessed 10/03/23 05/24/24 10:11 Patient Tobacco Use Status Never used Tobacco 05/24/24 10:11 Tobacco use type 04/08/22 12:28 e-Cigarette/Vaping Use Never Used 05/24/24 10:11 Thrive Assessment: Date of Thrive Assessment Date Thrive assessed 10/03/23 05/24/24 10:11 HENMT Head: Yes normal to inspection, Yes normocephalic and Yes atraumatic Ears: external ears normal Eyes General: appearance normal, both eyes and all related structures Eyelids: Yes eyelids normal Conjunctivae: conjunctivae normal Neck Neck: Yes normal visual inspection and Yes supple Resp Effort & Inspection: normal respiratory effort Auscultation: clear to auscultation bilaterally Cardio Jugular venous distension: no JVD Rate: regular rate Rhythm: regular rhythm Heart sounds: S1 normal heart sound present and S2 normal heart sound present GI Inspection: Yes normal to inspection Palpation (GI): Soft to palpation and nontender Auscultation: normal bowel sounds Skin General skin exam: no rashes or lesions noted Neuro General: no focal motor deficits Extrem General: Yes full ROM Psych Appearance: grossly normal Results AMB Hemoglobin A1c AMB Hemoglobin A1c 5.6 % Last Edit by CARLITA Arias on 05/24/24 10:2 4 Results Reviewed Results Reviewed: Laboratory Last Values Hgb A1c (Clinic) 5.6 % (4.0-6.0) 05/24/24 10:10 Assessment and Plan Assessment & Plan (1) Physical exam: Code(s): Z00.00 - Encounter for general adult medical examination without abnormal findings Plan: Repeat in a year. 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 A1c goal is less than 7%. (3) New persistent daily headache: Code(s): G44.52 - New daily persistent headache (NDPH) Plan: Start Topamax at bedtime. MRI of the brain ordered. Continue sumatriptan as needed. Orders: Orders AMB Hemoglobin A1c Today E11.65 - Type 2 diabetes mellitus with hyperglycemia Lipid Panel Today E11.65 - Type 2 diabetes mellitus with hyperglycemia, E78.5 - Hyperlipidemia, unspecified Microalbumin, Random (w Creat) Today E11.65 - Type 2 diabetes mellitus with hyperglycemia, E11.9 - Type 2 diabetes mellitus without complications MR head/brain wo con Today G44.52 - New daily persistent headache (NDPH) Comprehensive [place]. Panel Fast Today E11.65 - Type 2 diabetes mellitus with hyperglycemia Medications: New topiramate 25 mg PO BEDTIME 90 tabs 0RF 90 days G43.909 - Migraine, unspecified, not intractable, without status migrainosus empagliflozin (Jardiance) 10 mg PO DAILY 90 tabs 0RF 90 days E11.65 - Type 2 diabetes mellitus with hyperglycemia Refilled meloxicam 15 mg PO DAILY 30 tabs 1RF M25.50 - Pain in unspecified joint, M25.511 - Pain in right shoulder, M25.561 - Pain in right knee, M25.562 - Pain in left knee Discontinued pen needle, diabetic (BD Debi 2nd Gen Pen Needle) Discontinued Reason: Patient Completed Course Use 1 pen needle daily 50 ea 11RF .65 - Type 2 diabetes mellitus with hyperglycemia Coding Level of Care Code Est Pt Level 3 (04594) Est Pt Prev Care 40-64y(01436) Diagnoses Physical exam Z00.00 Type 2 diabetes mellitus with hyperglycemia, without long-term current use of insulin .65 Diabetes mellitus type: type 2 Diabetes mellitus long wall shear operator insulin use: without halfway use Diabetes mellitus complication status: with hyperglycemia New persistent daily headache G44.52 Time Spent (min) 35
[2024-05-24 10:16] VITALS: BP 110/82; BMI 24.6
== END 2024-05-24 10:45 | disposition home or self-care (01) ==
PROVIDERS: PCP Internal Medicine; Visit Provider Internal Medicine
DX: Z00.00 Encounter for general adult medical examination without abnormal findings (principal); E11.65 Type 2 diabetes mellitus with hyperglycemia; G44.52 New daily persistent headache (NDPH)
CPT/HCPCS: 83036; 99213; 99396

== ENCOUNTER 2024-06-06 08:41 | Outpatient (REF) | payer OTHER, SELFPAY ==
[2024-06-06 09:50] LABS: Alanine Aminotransferase 11 U/L (0-31); Albumin Level 3.9 g/dL (3.5-5.0); Alkaline Phosphatase 39 U/L (39-117); Anion Gap 8 (12-20); Aspartate Amino Transferase 16 U/L (5-31); Bilirubin Total 0.7 mg/dL (0.0-1.0); Blood Urea Nitrogen 9 mg/dL (9-16); Carbon Dioxide 26 mmol/L (22-29); Chloride 111 mmol/L (96-108); Cholesterol 224 mg/dL (<200); Estimated Glomerular Filt Rate > 60; Glucose Fasting 84 mg/dL (60-99); HDL Cholesterol 64 mg/dL (>40); LDL Cholesterol Calculated 143 mg/dL (<100); Potassium 4.4 mmol/L (3.3-5.1); Sodium 141 mmol/L (135-145); Total Protein 6.9 g/dL (6.5-8.0); Triglycerides 87 mg/dL (<150)
[2024-06-06 12:17] LABS: Creatinine Urine 183.62 mg/dL; Microalbum/Creatinine Ratio Ur 4.9 ug/mg cr (<30)
== END 2024-06-06 08:42 | disposition home or self-care (01) ==
LOC: HO.LAB 08:41
PROVIDERS: PCP Internal Medicine; Visit Provider Internal Medicine
DX: E11.65 Type 2 diabetes mellitus with hyperglycemia (principal); E78.5 Hyperlipidemia, unspecified
CPT/HCPCS: 36415; 80053; 80061; 82043; 82570

== ENCOUNTER 2024-07-02 18:04 | Outpatient (REF) | payer OTHER, SELFPAY ==
--- NOTE | ~2024-07-02 | MR_ITS ---
EXAMINATION: MR BRAIN WITHOUT CONTRAST CLINICAL INFORMATION: 44-year-old with new daily persistent headache. COMPARISON: None available. TECHNIQUE: MRI of the brain was obtained using routine sequences without contrast. FINDINGS: BRAIN VOLUME: Within normal limits within the limitations of qualitative assessment. STRUCTURAL: No malformations. BRAIN AND MENINGES: DWI sequence demonstrates no restricted diffusion to suggest acute or subacute cerebral ischemia. The brain is normal in morphology. There are a few, scattered punctate FLAIR/T2 hyperintensities in the subcortical white matter of the right anterior frontal and right posterior parietal lobes with slightly more prominent, more ovoid zones of T2 hyperintensity in the periatrial white matter, right more than left. Remainder of the brain parenchyma is normal in signal intensity. Susceptibility-weighted sequence demonstrates no abnormal signal loss to suggest hemorrhage, hemosiderin staining or abnormal mineralization. No extra-axial fluid collections, space-occupying process or mass effect are identified. VENTRICLES AND SUBARACHNOID SPACES: The ventricular system and subarachnoid spaces are within normal range; there is no hydrocephalus. ORBITAL STRUCTURES: The visualized orbital structures are grossly unremarkable within the limitations of the study. VASCULAR: Signal voids are noted in the visualized major intracranial vessels. OSSEOUS STRUCTURES, SINUSES/MASTOIDS, EXTRACRANIAL SOFT TISSUES: Unremarkable. MR/MR head/brain wo con IMPRESSION: 1. Scattered nonspecific white matter T2 hyperintensities in the cerebral hemispheres as described above. The pattern is not entirely consistent with migraine-associated vasculopathy, but this is not excluded. Other possible etiologies such as demyelination and nonspecific foci of postinflammatory gliosis or chronic ischemic changes are not excluded. Follow-up as per clinical indications. 2. No evidence for infarction, hemorrhage, extra-axial fluid collection, space-occupying process, mass effect or hydrocephalus. Electronically signed by: Isaac Felton MD 08/29/2024 03:57 PM [facility]
== END 2024-07-02 18:05 | disposition home or self-care (01) ==
LOC: HO.MRI 18:04
PROVIDERS: PCP Internal Medicine; Visit Provider Internal Medicine
DX: G44.52 New daily persistent headache (NDPH) (principal)
CPT/HCPCS: 70551

== ENCOUNTER 2024-10-22 12:27 | Outpatient (REF) | payer OTHER, SELFPAY | END 2024-10-22 12:28 | disposition home or self-care (01) | LOC: HO.MAMMO 12:27 | PROVIDERS: PCP Internal Medicine; Visit Provider Internal Medicine | DX: Z12.31 Encounter for screening mammogram for malignant neoplasm of breast (principal) | CPT/HCPCS: 77063; 77067 ==

== ENCOUNTER → 2024-10-22 12:30 | Outpatient (BNV) | payer OTHER, SELFPAY | PROVIDERS: PCP Internal Medicine; Visit Provider Internal Medicine | DX: Z12.31 Encounter for screening mammogram for malignant neoplasm of breast (principal) | CPT/HCPCS: 77063; 77067 ==

== ENCOUNTER 2024-10-29 13:10 | Outpatient (AMB) | payer OTHER, SELFPAY ==
--- NOTE | 2024-10-29 13:15 | A.OFFPC_ITS ---
Vital Signs 10/29/24 13:18 Height 5 ft 3 in Weight 135 lb BMI 23.9 BP 112/62 Blood Pressure Location Lt brachial Position Sitting Intake Visit Reasons: 3 Months F/U Intake Note: Patient here for a 3 month follow up Enterprise Resource Analyst Required: Yes Enterprise Resource Analyst Language: Corporate Investigator Name: Yumiko Max MD Information Interpreted: non-clinical & clinical Accompanied by: Mother Allergies metformin Adverse Reaction (Intermediate, Verified 10/29/24 13:40) Abdominal Pain jardiance Adverse Reaction (Intermediate, Uncoded 10/29/24 13:40) UTI trestiba Adverse Reaction (Intermediate, Uncoded 10/29/24 13:40) Nausea and Vomiting Medication List - Last Reconciled 10/29/24 by Yumiko Max MD atorvastatin 40 mg PO BEDTIME 90 days blood sugar diagnostic (FreeStyle Lite Strips) Use 1 test strip once a day blood-glucose meter (FreeStyle Lite Meter kit) As directed lancets (FreeStyle Lancets) Use 1 lancet once a day meloxicam 15 mg PO DAILY omeprazole 20 mg PO DAILY 90 days Tobacco use date assessed: 10/29/24 Dental Screening Dental Screen Date: 10/29/24 Did you have a dental visit in the last 12 months?: No Did you have a dental problem in the last 6 months where you did not have access to dental care?: No Was dental information given to patient?: Patient has dentist HPI HPI Comments History of Present Illness Details The patient is a 44-year-old female presenting with concerns regarding Type 2 Diabetes Mellitus, noting she is self-administering semaglutide weekly for glucose control. Her blood sugar levels are generally well-managed, though she experiences hypoglycemia if she misses meals. The patient also has a history of hyperlipidemia, for which she takes atorvastatin 40 mg. Her LDL was previously reported to be elevated at over 100 mg/dL. Additionally, the patient experiences migraines with accompanying hand tremors, primarily affect her right hand. She was recently prescribed propranolol 40 mg twice daily but experienced severe hypotension as a side effect, prompting a concern regarding the dosage. [facility] Medical History (Updated 10/29/24 @ 13:48 by Yumiko Max MD) Bilateral hand pain Chronic GERD Dyslipidemia Blurry vision Right shoulder pain Obese Diabetes mellitus Surgical History History of bilateral tubal ligation Hx of breast reduction, elective Family History Mother Hypertension Pre-diabetes Father Hypertension Diabetes Social History Housing: Apartment Alcohol intake: current Alcohol intake frequency: holidays/special occasions only Alcohol type: wine Patient Tobacco Use Status: Never used Tobacco e-Cigarette/Vaping Use: Never Used Second Hand Smoke Exposure: Yes service: No Current occupational status: employed 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 1. Little interest or pleasure in doing things: not at all 2. Feeling down, depressed, or hopeless: not at all 3. Trouble falling or staying asleep, or sleeping too much: not at all 4. Feeling tired or having little energy: not at all 5. Poor appetite or overeating: not at all 6. Feeling bad about yourself - or that you are a failure or have let yourself or your family down: not at all 7. Trouble concentrating on things, such as reading the newspaper or watching television: not at all 8. Moving or speaking so slowly that other people could have noticed. Or the opposite - being so fidgety or restless that you have been moving around a lot more than usual: not at all 9. Thoughts that you would be better off or of hurting yourself in some way: not at all Total score: 0 Depression Screening Interpretation: Negative Depression Screening Done: Yes 80337 - PHQ-9 Billing: Yes Source: Developed by Drs. Chandan Bañuelos, Edel Doshi, Black Fermin and colleagues, with an educational stan from [employer]. Thrive Questionnaire Date Thrive assessed: 10/29/24 I am a: Patient What is your living situation today?: I have a steady place to live Within the past 12 months, did the food you bought not last and you didn't have the money to get more?: Never true Within the past 12 months, did you worry whether your food would run out before you got money to buy more?: Never true Do you have trouble paying for medicines?: No Do you have trouble getting transportation to medical appointments?: No Do you have trouble paying your heating and electricity bill?: No Do you have trouble taking care of your child, family member or friend?: No Do you have trouble with day-to-day activities such as bathing, preparing meals, shopping, managing finances, etc.?: No Are you currently unemployed and looking for a job?: No Are you interested in more education?: No Please select the resources that you would like help with: None Currently or been in a relationship where the following occur: No concerns reported THRIVE Score: 0 AUDIT C Alcohol Use Questionnaire (AUDIT-C) 1. How often do you have a drink containing alcohol?: Monthly or less 2. How many drinks containing alcohol do you have on a typical day when you are drinking?: 1 or 2 3. How often do you have six or more drinks on one occasion?: Never Total Score: 1 Score Reviewed/Action Taken: No DIDI-7 AMB Questionnaire DIDI-7 Date DIDI - 7 assessed: 10/29/24 Feeling nervous, anxious, or on edge: 0 = Not at all Not being able to stop or control worryin = Not at all Worrying too much about different things: 0 = Not at all Trouble relaxin = Not at all Being so restless that it is hard to sit still: 0 = Not at all Becoming easily annoyed or irritable: 0 = Not at all Feeling afraid as if something awful might happen: 0 = Not at all Total DIDI-7 score (0-4 normal; 5-9 mild; 10-14 moderate; 15-21 severe): 0 Source: Developed by Drs. Chandan Bañuelos, Edel Doshi, Black Fermin and colleagues, with an educational stan from [employer]. DIDI-7 Assessment Billing DIDI-7 Assessment Tool: DIDI-7 Assessment 99579 Review of Systems Const All systems reviewed & are unremarkable except as noted in HPI and below Card Denies chest pain at rest, Denies chest pain with activity, Denies edema, Denies irregular heart rhythm, Denies claudication, Denies dyspnea, Denies dyspnea on exertion, Denies orthopnea, Denies paroxysmal nocturnal dyspnea and Denies slow heart rate Resp Denies cough, Denies dyspnea and Denies dyspnea on exertion Physical exam (Primary Care) Vital Signs: Last Vital Signs BP 112/62 10/29/24 13:18 BMI result Body Mass Index 23.9 Tobacco/Smoking Status: Tobacco use Status Tobacco use date assessed 10/29/24 10/29/24 13:22 Patient Tobacco Use Status Never used Tobacco 10/29/24 13:17 Tobacco use type 04/08/22 12:28 e-Cigarette/Vaping Use Never Used 10/29/24 13:17 PHQ-9: PHQ-9 Score PHQ-9: Total score 0 10/29/24 16:58 Depression Screening Interpretation: Negative Thrive Assessment: Date of Thrive Assessment Date Thrive assessed 10/29/24 10/29/24 13:22 Currently or been in a relationship where the following occur: No concerns reported Resp Effort & Inspection: normal respiratory effort Auscultation: clear to auscultation bilaterally Cardio Jugular venous distension: no JVD Rate: regular rate Rhythm: regular rhythm Heart sounds: S1 normal heart sound present and S2 normal heart sound present Extrem General: Yes full ROM Office Procedures Flu Questionnaire Does the patient have a severe egg allergy?: No Results AMB Hemoglobin A1c AMB Hemoglobin A1c 5.5 % Last Edit by CARLITA Arias on 10/29/24 13:3 4 Immunizations Fluarix Triv [id number] (PF) 45 mcg (15 mcg x 3)/0.5 mL IM syringe Performing Provider: Yumiko Max MD [place] [facility] [place] [facility] Documented (not given) by: CARLITA Arias on 10/29/24 13:25 Reason Not Given: Patient Refused Results Reviewed Results Reviewed: Laboratory Last Values Hgb A1c (Clinic) 5.5 % (4.0-6.0) 10/29/24 13:15 Coding Level of Care Code Est Pt Level 4 (41785) Complex EM visit Add On G2211 Diagnoses Type 2 diabetes mellitus with hyperglycemia, without long-term current use of insulin E11.65 Diabetes mellitus type: type 2 Diabetes mellitus [facility] insulin use: without remote computer terminal operator use Diabetes mellitus complication status: with hyperglycemia Hyperlipidemia LDL goal <70 E78.5 Migraines G43.909 Tremor R25.1 Additional Codes DIDI-7 Assessment Billing - DIDI-7 Assessment Tool: DIID-7 Assessment 02427 ([id number]) PHQ-9 - 79658 - PHQ-9 Billing: Yes ([id number]) Time Spent (min) 23 Assessment & Plan Assessment & Plan (1) Diabetes mellitus: Code(s): E11.9 - Type 2 diabetes mellitus without complications Category: Medical Qualifiers: Diabetes mellitus type: type 2 Diabetes mellitus remote computer terminal operator insulin use: without [facility] use Diabetes mellitus complication status: with hyperglycemia Qualified Code(s): E11.65 - Type 2 diabetes mellitus with hyperglycemia (2) Hyperlipidemia LDL goal <70: Code(s): E78.5 - Hyperlipidemia, unspecified Category: Medical (3) Migraines: Code(s): G43.909 - Migraine, unspecified, not intractable, without status migrainosus Category: Medical (4) Tremor: Code(s): R25.1 - Tremor, unspecified Category: Medical Plan - Adjust propranolol dosage to 10 mg twice daily and monitor response, given past adverse reaction to higher dose. - Continue atorvastatin 40 mg for hyperlipidemia management. - Monitor semaglutide therapy for effective diabetes control. - Perform regular lab work to monitor cholesterol and glucose levels. - Consider additional oral diabetes medication if semaglutide proves insufficient for glycemic control. - Patient advised to maintain hydration to prevent potential renal issues. Patient was informed and verbally consented to the use of an ambient scribe for clinic note documentation during this visit. I discussed the patient's current medication regimen, including propranolol adjustment due to hypotension and potential benefits. We reviewed management for diabetes with semaglutide injections and the effectivity on maintaining her A1c levels. I explained the risks of hypoglycemia with diabetes and emphasized the importance of maintaining regular meals. The need for continued monitoring of cholesterol levels was highlighted given elevated LDL. I informed her about the alternative options for migraine management that include adjusting the propranolol dosage. Orders: Orders Lipid Panel 6 Months E78.5 - Hyperlipidemia, unspecified Microalbumin, Random (w Creat) 6 Months R80.9 - Proteinuria, unspecified Comprehensive [place]. Panel Fast 6 Months E11.65 - Type 2 diabetes mellitus with hyperglycemia AMB Hemoglobin A1c Today E11.65 - Type 2 diabetes mellitus with hyperglycemia Influenza [id number] Immunization Today Z23 - Encounter for immunization Medications: New propranolol 10 mg PO BID 60 tabs 0RF 30 days R25.1 - Tremor, unspecified glipizide 2.5 mg PO DAILY 90 tabs 0RF 90 days E11.65 - Type 2 diabetes mellitus with hyperglycemia Patient Instructions: - Take propranolol 10 mg twice daily and report any side effects or concerns. - Maintain current atorvastatin dosage for cholesterol management. - Keep semaglutide regimen consistent and monitor blood sugar levels. - Ensure regular meals are eaten to prevent hypoglycemia. - Maintain adequate hydration daily. -
[2024-10-29 13:18] VITALS: BP 112/62; BMI 23.9
== END 2024-10-29 13:54 | disposition home or self-care (01) ==
PROVIDERS: PCP Internal Medicine; Visit Provider Internal Medicine
DX: E11.65 Type 2 diabetes mellitus with hyperglycemia (principal); E78.5 Hyperlipidemia, unspecified; G43.909 Migraine, unspecified, not intractable, without status migrainosus; R25.1 Tremor, unspecified; Z23 Encounter for immunization

== ENCOUNTER → 2024-10-29 13:10 | Outpatient (BNVA) | payer OTHER, SELFPAY | PROVIDERS: PCP Internal Medicine; Visit Provider Internal Medicine | DX: E11.65 Type 2 diabetes mellitus with hyperglycemia (principal); E78.5 Hyperlipidemia, unspecified; R25.1 Tremor, unspecified | CPT/HCPCS: 83036; 90471; 96127; 99212 ==

== ENCOUNTER 2024-11-07 13:25 | Outpatient (AMB) | payer OTHER, SELFPAY ==
--- NOTE | 2024-11-07 13:30 | A.OFFPC_ITS ---
Vital Signs 11/07/24 13:31 Height 5 ft 3 in Weight 134 lb 6 oz BMI 23.8 BP 120/74 Blood Pressure Location Lt brachial Position Sitting Temp 97.1 F Temp Source Skin Intake Visit Reasons: Cyst of skin Intake Note: Patient is here to follow up on lump on left side of ribs notice 5 days ago. Flavorings Compounder Required: Yes Flavorings Compounder Language: Security Sme Name: Rj ([id number]) Information Interpreted: non-clinical & clinical Business Administration Instructor: Not Required per policy Accompanied by: Self / Same As Patient Allergies metformin Adverse Reaction (Intermediate, Verified 11/07/24 13:39) Abdominal Pain jardiance Adverse Reaction (Intermediate, Uncoded 11/07/24 13:39) UTI trestiba Adverse Reaction (Intermediate, Uncoded 11/07/24 13:39) Nausea and Vomiting Medication List - Last Reconciled 11/07/24 by CARMEN Dent atorvastatin 40 mg PO BEDTIME 90 days blood sugar diagnostic (FreeStyle Lite Strips) Use 1 test strip once a day blood-glucose meter (FreeStyle Lite Meter kit) As directed glipizide 2.5 mg PO DAILY 90 days lancets (FreeStyle Lancets) Use 1 lancet once a day meloxicam 15 mg PO DAILY omeprazole 20 mg PO DAILY 90 days propranolol 10 mg PO BID 30 days Tobacco use date assessed: 11/07/24 Dental Screening Dental Screen Date: 10/29/24 HPI Cyst of skin HPI Details The patient is a 44-year-old female She is presenting today with complaints of a lump to the left of her rib areas Patient reports that she is not sure when and started but notices around 4-5 days ago She reports that there is small discomfort to the area with palpation She has no discoloration and no obvious lump without touching the area questioned dermoid cyst, will refer the patient to general surgery Patient denies any systemic symptoms PFSH Medical History Bilateral hand pain Chronic GERD Dyslipidemia Blurry vision Right shoulder pain Obese Diabetes mellitus Surgical History History of bilateral tubal ligation Hx of breast reduction, elective Family History Mother Hypertension Pre-diabetes Father Hypertension Diabetes Social History Housing: Apartment Alcohol intake: current Alcohol intake frequency: holidays/special occasions only Alcohol type: wine Patient Tobacco Use Status: Never used Tobacco e-Cigarette/Vaping Use: Never Used Second Hand Smoke Exposure: Yes service: No Current occupational status: employed 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 Chandan Bañuelos, Edel Doshi, Black Fermin and colleagues, with an educational stan from [employer]. Review of Systems Const Details: Denies chills, Denies fatigue, Denies fever(s), Denies headache(s) and Denies weakness HEENT Denies change in vision, Denies dizziness, Denies headache(s), Denies hearing loss, Denies nasal congestion, Denies sinus pain, Denies sinus pressure and Denies sore throat Card Denies chest pain, Denies lightheadedness, Denies dyspnea and Denies other (palpitations) Resp Denies cough, Denies dyspnea and Denies wheezing GI Denies abdominal pain, Denies melena, Denies hematochezia, Denies change in bowel habits, Denies dyspepsia and Denies nausea Denies hematuria and Denies dysuria Musc Denies abnormal gait, Denies myalgias, Denies arthralgias, Denies numbness and Denies tingling Skin/Breast Denies rash, Denies unusual bruising and Denies wounds Other: Reports small lump to lateral rib area Physical exam (Primary Care) Vital Signs: Last Vital Signs Temp 97.1 F 11/07/24 13:31 BP 120/74 11/07/24 13:31 BMI result Body Mass Index 23.8 Tobacco/Smoking Status: Tobacco use Status Tobacco use date assessed 11/07/24 11/07/24 13:38 Patient Tobacco Use Status Never used Tobacco 11/07/24 13:38 Tobacco use type 04/08/22 12:28 e-Cigarette/Vaping Use Never Used 11/07/24 13:38 Thrive Assessment: Date of Thrive Assessment Date Thrive assessed 10/29/24 11/07/24 13:38 Const Other: General: no acute distress, well developed, alert and awake Nutritional Appearance: well nourished Orientation/consciousness: patient oriented x3 HENMT Head: Yes normocephalic and Yes atraumatic Eyes Pupils: Equal, round and reactive pupils present and Pupil accommodation reflex normal EOM: EOMs intact bilaterally Neck Neck: Yes normal visual inspection, Yes no lymphadenopathy Thyroid: Thyroid normal Resp Effort & Inspection: normal respiratory effort Auscultation: clear to auscultation bilaterally Cardio Rate: regular rate Rhythm: regular rhythm Heart sounds: S1 normal heart sound present, S2 normal heart sound present, no gallops, no murmurs and no rubs GI Palpation (GI): No Abdominal aortic bruit present, Soft to palpation, nontender, No hepatosplenomegaly present and No Rebound tenderness present Auscultation: normal bowel sounds General: Yes no CVA tenderness Back/Spine/Pelvis Back: no CVA tenderness Cervical Spine: cervical ROM normal and No Cervical spine tenderness Thoracic/Lumbar Spine: thoraco-lumbar ROM normal, No pain with thoraco-lumbar ROM, No thoracic spinal tenderness and No lumbar spinal tenderness Skin General: warm and dry. Normal skin color. Normal skin turgor Lesions: small firm area to left lateral thoracic area Rashes: no rashes Nails: normal Neuro General: patient oriented x3, gait normal Cranial nerves: Yes Equal, round and reactive pupils present Cognition (Neuro): normal cognition Gait exam (Neuro): Normal gait present Extrem General: Yes normal to inspection, No edema and No calf tenderness Psych Appearance: grossly normal Affect: normal affect Attitude: cooperative Thought process: Normal thought process present Coding Level of Care Code Est Pt Level 3 (48809) Diagnoses Dermoid cyst D36.9 Time Spent (min) 28 Assessment & Plan Assessment & Plan (1) Dermoid cyst: Code(s): D36.9 - Benign neoplasm, unspecified site Category: Medical Plan: General surgery referral placed Orders: Referrals General Surgery Referral D36.9 - Benign neoplasm, unspecified site
[2024-11-07 13:31] VITALS: BP 120/74; TEMP 36.2; BMI 23.8
== END 2024-11-07 13:53 | disposition home or self-care (01) ==
PROVIDERS: PCP Internal Medicine
DX: D36.9 Benign neoplasm, unspecified site (principal)

== ENCOUNTER → 2024-11-07 13:25 | Outpatient (BNVA) | payer OTHER, SELFPAY | PROVIDERS: PCP Internal Medicine | DX: D36.9 Benign neoplasm, unspecified site (principal) | CPT/HCPCS: 99212 ==

== ENCOUNTER → 2024-12-12 10:57 | Outpatient (BNVA) | payer OTHER, SELFPAY | PROVIDERS: PCP Internal Medicine; Visit Provider Advanced Practice Midwife ==

== ENCOUNTER → 2025-01-09 10:56 | Outpatient (BNVA) | payer OTHER, SELFPAY | PROVIDERS: PCP Internal Medicine; Visit Provider Obstetrics & Gynecology ==

== ENCOUNTER 2025-02-27 10:36 | Outpatient (REF) | payer OTHER, SELFPAY ==
[2025-02-27 17:01] LABS: CT PCR NOT DETECTED (Not Detect.); NG PCR NOT DETECTED (Not Detect.)
== END 2025-02-27 10:37 | disposition home or self-care (01) ==
LOC: HO.LNP 10:36
PROVIDERS: PCP Internal Medicine; Visit Provider Obstetrics & Gynecology
DX: Z01.419 Encounter for gynecological examination (general) (routine) without abnormal findings (principal); R10.2 Pelvic and perineal pain; R31.29 Other microscopic hematuria
CPT/HCPCS: 81002; 81025; 87086; 87491; 87591; 99396; 99459

== ENCOUNTER 2025-02-27 10:36 | Outpatient (AMB) | payer OTHER, SELFPAY ==
--- NOTE | 2025-02-27 10:37 | A.OFFVIS_ITS ---
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 Worsening with menstrual. Information Interpreted: non-clinical & clinical Accompanied by: Self / Same As Patient Allergies metformin Adverse Reaction (Intermediate, Verified 12/12/24 11:14) Abdominal Pain jardiance Adverse Reaction (Intermediate, Uncoded 11/07/24 13:39) UTI trestiba Adverse Reaction (Intermediate, Uncoded 11/07/24 13:39) Nausea and Vomiting HPI Comments Details: Presenting for annual exam. Complaining of pelvic pain on and off no associated vaginal discharge, no urinary or GI simple Last Pap/HPV was negative in 12/15 Last Mammogram was BI-RADS 2 in 10/20 No previous screening colonoscopy [facility] Medical History Bilateral hand pain Chronic GERD Dyslipidemia Blurry vision Right shoulder pain Obese Diabetes mellitus Surgical History History of bilateral tubal ligation Hx of breast reduction, elective Family History Mother Hypertension Pre-diabetes Father Hypertension Diabetes Social History Housing: Apartment Alcohol intake: current Alcohol intake frequency: holidays/special occasions only Alcohol type: wine Patient Tobacco Use Status: Never used Tobacco e-Cigarette/Vaping Use: Never Used Second Hand Smoke Exposure: Yes service: No Current occupational status: employed 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 Current occupational exposures/hazards: No Sexual orientation: Straight/Heterosexual Gender identity: Female Cognitive needs: No Hearing needs: No Vision needs: Yes Female Reproductive History Menstrual Age of Menarche: 13 Duration of menses: 3-5 days Date of last menstrual period: 02/08/25 control method: none Total pregnancies: 5 Full term: 2 Number of Living Children: 2 Ab induced: 2 Ectopics: 1 Date of last pap smear: 12/15/21 Date of Mammogram: 10/22/24 Review of Systems Const All systems reviewed & are unremarkable except as noted in HPI and below Card Reports as per HPI Resp Reports as per HPI GI Reports as per HPI and Reports no additional complaints Reports as per HPI Physical Exam Vital Signs: Last Vital Signs BP 126/80 02/27/25 10:38 BMI result Body Mass Index 23.0 Const General: cooperative, healthy appearing and comfortable Chest Chest palpation & inspection: normal inspection of the chest and normal palpation of entire chest wall Breast/axilla inspection: normal inspection of the breasts and normal inspection of the axillae Breast/axilla palpation: normal palpation of the breasts, normal palpation of the axillae and no axillary lymphadenopathy Resp Effort & Inspection: normal respiratory effort Auscultation: clear to auscultation bilaterally Percussion: percussion normal Cardio Palpation: normal PMI Rate: regular rate Rhythm: regular rhythm Heart sounds: no murmurs and no rubs Peripheral pulses: Peripheral pulses 2+ throughout GI Inspection: Yes normal to inspection Palpation (GI): Soft to palpation, nontender, no guarding, not rigid and No hepa tosplenomegaly present Percussion: Yes normal to percussion Auscultation: normal bowel sounds Rectal Exam - Female: deferred General: Yes bladder normal to palpation External Female Exam: No lesion Speculum Exam - Vagina: normal appearance of the vagina, normal palpation, normal vaginal discharge and not erythematous Speculum Exam - Cervix: normal appearance of the cervix and normal palpation Bimanual exam- vagina & uterus: normal bimanual exam, normal palpation, uterine size normal, bladder normal to palpation, consistency normal and normal palpation Bimanual Exam- Adnexa, other: normal adnexae, no masses and no tenderness Results AMB Test Urine AMB Test Urine Negative Last Edit by Viviana Howard CMA on 11:06 AMB Urinalysis Dipstick UR Leukocytes Negative Last Edit by Viviana Howard CMA on 02/27/25 11:12 UR Nitrite Negative Last Edit by Viviana Howard CMA on 02/27/25 11:12 UR Urobilinogen Normal Last Edit by Viviana Howard CMA on 02/27/25 11:12 UR Protein Negative Last Edit by Viviana Howard CMA on 02/27/25 11:12 UR Ph 6.0 Last Edit by Viviana Howard CMA on 02/27/25 11:12 UR Blood Large Last Edit by Viviana Howard CMA on 02/27/25 11:12 UR Specific [place] Last Edit by Viviana Howard CMA on 02/27/25 11:12 UR Ketone Negative Last Edit by Viviana Howard CMA on 02/27/25 11:12 UR Bilirubin Negative Last Edit by Viviana Howard CMA on 02/27/25 11:12 UR Glucose Negative Last Edit by Viviana Howard CMA on 02/27/25 11:12 Assessment & Plan Assessment & Plan (1) Well woman exam: Code(s): Z01.419 - Encounter for gynecological examination (general) (routine) without abnormal findings Category: Medical Plan: Cotesting not indicated this year. Instructions given the patient to schedule next screening Mammogram in 10/21. GI referral for screening colonoscopy placed Counseled the patient about the recommended dietary allowance of 1000 mg of Calc ium & 600 IU of vitamin D. The patient was instructed to perform monthly self-breast exams and to schedule an annual exam in a year; All questions answered and the patient verbalized understanding. Instructed the patient to schedule annual exam in a year (2) Pelvic pain: Code(s): R10.2 - Pelvic and perineal pain Category: Medical Plan: Urine test done in the office was negative. GC and chlamydia taken and pelvic ultrasound ordered. Discussed with the patient the differential diagnosis of pelvic pain including but not limited to adnexal, uterine masses, pelvic infections (PID), GI the (Irritable bowel syndrome, diverticulitis, others), musculoskeletal, myofascial pain abdominal wall , adhesions, endometriosis, psychological and others causes. Will check results and treat accordingly. All questions answered, the patient verbalized understanding. Instructed the patient to schedule an ultrasound and a follow-up appointment in 2 weeks. All questions answered, the patient verbalized understanding and agreed with the plan. (3) Microscopic hematuria: Code(s): R31.29 - Other microscopic hematuria Category: Medical Plan: Urine dip showed microscopic hematuria, urine culture sent. Will repeat urine dip in 2 weeks. Discussed with the patient the possible causes of microscopic hematuria including but not limited to: interstitial cystitis, polyps, stones, masses, urethral inflammatory processes and others. If Urine Culture is negative and repeat urine dip in 2 weeks shows persistent microscopic hematuria, will proceed with CT abdomen/pelvis and urology referral. Instructions given the patient to schedule a 2 week urine dip follow-up appointment. All questions answered and the patient verbalized understanding. Orders: Orders CT NG by PCR Today R10.2 - Pelvic and perineal pain AMB HCG Urine Test Today Z32.02 - Encounter for test, result negative US pelvic and transvaginal Today R10.2 - Pelvic and perineal pain AMB Urinalysis Dipstick Today Z32.02 - Encounter for test, result negative Referrals Gastroenterology Referral Z12.11 - Encounter for screening for malignant neoplasm of colon Gastroenterology Referral Z12.11 - Encounter for screening for malignant neoplasm of colon Coding Level of Care Code Est Pt Prev Care 40-64y(83516) Diagnoses Well woman exam Z01.419 Pelvic pain R10.2 Microscopic hematuria R31.29
[2025-02-27 10:38] VITALS: BP 126/80; BMI 23.0
== END 2025-02-27 12:24 | disposition home or self-care (01) ==
LOC: HO.HWS 10:36
PROVIDERS: PCP Internal Medicine; Visit Provider Obstetrics & Gynecology
DX: Z01.419 Encounter for gynecological examination (general) (routine) without abnormal findings (principal); R10.2 Pelvic and perineal pain; R31.29 Other microscopic hematuria; Z32.02 Encounter for pregnancy test, result negative
CPT/HCPCS: 99396; 99459

== ENCOUNTER 2025-04-15 11:14 | Outpatient (REF) | payer OTHER, SELFPAY ==
--- NOTE | ~2025-04-15 | US_ITS ---
EXAMINATION: US PELVIS TRANSABDOMINAL AND TRANSVAGINAL HISTORY: R10.2 - Pelvic and perineal pain COMPARISON: Comparison is made with the prior examination dated 04/05/2022. TECHNIQUE: Transabdominal and endovaginal real-time 2D hooper-scale ultrasound was performed. FINDINGS: Uterus: The uterus is enlarged, measuring 10.1 x 5.1 x 5.7 cm. Myometrium has heterogeneous echotexture. No fibroids are identified. Endometrium: The endometrial stripe measures 9 mm in thickness. There is a 7 x 3 x 3 mm soft tissue mass in the cervix compatible with a polyp. Right ovary: The right ovary measures 3.0 x 2.7 x 2.6 cm. The right ovary is normal in size and echotexture. There is a 2.0 cm dominant follicle. Left ovary: The left ovary measures 1.9 x 1.4 x 1.7 cm. The left ovary is normal in size and echotexture. Pelvic fluid: none. US/US pelvic and transvaginal IMPRESSION: 7 x 3 x 3 mm soft tissue mass in the cervix, compatible with a polyp. Electronically signed by: Chandan Cardona MD 04/15/2025 01:07 PM EDT
== END 2025-04-15 11:15 | disposition home or self-care (01) ==
LOC: HO.US 11:14
PROVIDERS: PCP Internal Medicine; Visit Provider Obstetrics & Gynecology
DX: R10.2 Pelvic and perineal pain (principal)
CPT/HCPCS: 76830; 76856

== ENCOUNTER → 2025-04-15 11:18 | Outpatient (BNV) | payer OTHER, SELFPAY | PROVIDERS: PCP Internal Medicine; Visit Provider Radiology Diagnostic Radiology | DX: N84.1 Polyp of cervix uteri (principal) | CPT/HCPCS: 76830; 76856 ==

== ENCOUNTER 2025-04-17 12:37 | Outpatient (REF) | payer OTHER, SELFPAY ==
[2025-04-17 14:59] LABS: Blood Urea Nitrogen 10 mg/dL (9-16); Estimated Glomerular Filt Rate > 60
== END 2025-04-17 12:38 | disposition home or self-care (01) ==
LOC: HO.LAB 12:37
PROVIDERS: PCP Internal Medicine; Visit Provider Obstetrics & Gynecology
DX: N84.1 Polyp of cervix uteri (principal); R31.29 Other microscopic hematuria; Z98.51 Tubal ligation status
CPT/HCPCS: 36415; 81002; 82565; 84520; 99212

== ENCOUNTER 2025-04-17 12:37 | Outpatient (AMB) | payer OTHER, SELFPAY ==
--- NOTE | 2025-04-17 13:09 | MHC.OFFVIS ---
Vital Signs 04/17/25 13:18 Height 5 ft 3 in Weight 130 lb BMI 23.0 BP 118/68 Intake Visit Reasons: U/S/urine dip/ ? pre op Development Coach Required: Yes Development Coach Language: Photo Print Specialist Services: Development Coach Present (in person) Development Coach Name: Viviana ZAZUETA Information Interpreted: non-clinical & clinical Hostel Manager: Hostel Manager Present Accompanied by: Mother Allergies metformin Adverse Reaction (Intermediate, Verified 04/17/25 13:10) Abdominal Pain jardiance Adverse Reaction (Intermediate, Uncoded 04/17/25 13:10) UTI trestiba Adverse Reaction (Intermediate, Uncoded 04/17/25 13:10) Nausea and Vomiting Is last menstrual period known: Yes Last menstrual period: 07/24/20 Post menopausal: No Patient : No Do you need a note to return to daycare/school/sports/work: Yes (for surgery on tuesday) HPI Comments Details: Presenting for follow-up. Last visit UPT with negative, urine dip showed microscopic hematuria, Urine culture was negative GC/CT were negative Ultrasound showed the following: Uterus: The uterus is enlarged, measuring 10.1 x 5.1 x 5.7 cm. Myometrium has heterogeneous echotexture. No fibroids are identified. Endometrium: The endometrial stripe measures 9 mm in thickness. There is a 7 x 3 x 3 mm soft tissue mass in the cervix compatible with a polyp. Right ovary: The right ovary measures 3.0 x 2.7 x 2.6 cm. The right ovary is normal in size and echotexture. There is a 2.0 cm dominant follicle. Left ovary: The left ovary measures 1.9 x 1.4 x 1.7 cm. The left ovary is normal in size and echotexture. Pelvic fluid: none. [facility] Medical History Bilateral hand pain Chronic GERD Dyslipidemia Blurry vision Right shoulder pain Obese Diabetes mellitus Surgical History History of bilateral tubal ligation Hx of breast reduction, elective Family History Mother Hypertension Pre-diabetes Father Hypertension Diabetes Social History Housing: Apartment Alcohol intake: current Alcohol intake frequency: holidays/special occasions only Alcohol type: wine Patient Tobacco Use Status: Never used Tobacco e-Cigarette/Vaping Use: Never Used Second Hand Smoke Exposure: Yes service: No Current occupational status: employed 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 Current occupational exposures/hazards: No Sexual orientation: Straight/Heterosexual Gender identity: Female Cognitive needs: No Hearing needs: No Vision needs: Yes Female Reproductive History Menstrual Age of Menarche: 13 Date of last menstrual period: 07/24/20 Total pregnancies: 2 Full term: 2 Review of Systems Card Reports as per HPI and Reports no additional complaints Resp Reports as per HPI and Reports no additional complaints GI Reports as per HPI and Reports no additional complaints Reports as per HPI Physical Exam Vital Signs: Last Vital Signs BP 118/68 04/17/25 13:18 BMI result Body Mass Index 23.0 Const General: cooperative, healthy appearing and comfortable Resp Effort & Inspection: normal respiratory effort Auscultation: clear to auscultation bilaterally Percussion: percussion normal Cardio Palpation: normal PMI Rate: regular rate Rhythm: regular rhythm Heart sounds: no murmurs and no rubs Peripheral pulses: Peripheral pulses 2+ throughout GI Inspection: Yes normal to inspection Palpation (GI): Soft to palpation, nontender, no guarding, not rigid and No hepatosplenomegaly present Percussion: Yes normal to percussion Auscultation: normal bowel sounds Rectal Exam - Female: deferred Results AMB Urinalysis Dipstick UR Leukocytes Negative Last Edit by Viviana Howard CMA on 04/17/25 13:20 UR Nitrite Negative Last Edit by Viviana Howard CMA on 04/17/25 13:20 UR Urobilinogen Normal Last Edit by Viviana Howard CMA on 04/17/25 13:20 UR Protein Negative Last Edit by Viviana Howard CMA on 04/17/25 13:20 UR Ph 6.5 Last Edit by Viviana Howard CMA on 04/17/25 13:20 UR Blood Trace Last Edit by Viviana Howard CMA on 04/17/25 13:20 UR Specific [place] 1.015 Last Edit by Viviana Howard CMA on 04/17/25 13:20 UR Ketone Negative Last Edit by Viviana Howard CMA on 04/17/25 13:20 UR Bilirubin Negative Last Edit by Viviana Howard CMA on 04/17/25 13:20 UR Glucose Negative Last Edit by Viviana Howard CMA on 04/17/25 13:20 Results Reviewed Results Reviewed: Laboratory Last Values Urine pH (Clinic) 6.5 04/17/25 13:19 Specific [place] (Clinic) 1.015 04/17/25 13:19 Ur Protein (Clinic) Negative 04/17/25 13:19 Ur Ketones (Clinic) Negative 04/17/25 13:19 Urine Blood (Clinic) Trace 04/17/25 13:19 Urine Nitrite Negative 04/17/25 13:19 Urine Bilirubin (Clinic) Negative 04/17/25 13:19 Urobilinogen (Clinic) Normal 04/17/25 13:19 Leukocyte Esterase (Clinic) Negative 04/17/25 13:19 Urine Glucose (Clinic) Negative 04/17/25 13:19 Assessment & Plan Assessment & Plan (1) Endocervical polyp: Code(s): N84.1 - Polyp of cervix uteri Category: Medical Plan: Discussed with the patient the finding on ultrasound showing endocervical polyp, recommended hysteroscopy D&C possible polypectomy/myomectomy Discussed with the patient the procedure , all benefits and risks including but not limited to inability to complete the procedure , insufficient endometrial tissue for a complete evaluation of the endometrial cavity , bleeding, infection, possible need for blood transfusion with all its risk ( HIV,syphilis, Hepatitis, anaphylaxis shock, others..), injury to bladder, rectum, possible need for laparoscopy/laparotomy or hysterectomy. The patient verbalized understanding and signed the consent. Instructions given the patient to stay NPO after midnight the day prior to the procedure and to take only the specific medication (s) discussed the morning of the surgical procedure and to schedule a 2 week postoperative appointment (2) Microscopic hematuria: Code(s): R31.29 - Other microscopic hematuria Category: Medical Plan: Urine dip showed persists microscopic hematuria, urine culture was negative. Discussed with the patient the possible causes of microscopic hematuria including but not limited to: interstitial cystitis, polyps, stones, masses, urethral inflammatory processes and others. will proceed with CT abdomen/pelvis and urology referral. Instructions given the patient to schedule a 2 week urine dip follow-up appointment. All questions answered and the patient verbalized understanding. Orders: Orders AMB Urinalysis Dipstick Today R31.29 - Other microscopic hematuria CT abdomen pelvis wo/w IV con Today R31.29 - Other microscopic hematuria Blood Urea Nitrogen Today R31.29 - Other microscopic hematuria Creatinine Today R31.29 - Other microscopic hematuria Referrals Urology Referral R31.29 - Other microscopic hematuria Coding Level of Care Code Est Pt Level 3 (22627) Diagnoses Endocervical polyp N84.1 Microscopic hematuria R31.29
[2025-04-17 13:18] VITALS: BP 118/68; BMI 23.0
== END 2025-04-17 13:46 | disposition home or self-care (01) ==
LOC: HO.HWS 12:37
PROVIDERS: PCP Internal Medicine; Visit Provider Obstetrics & Gynecology
DX: N84.1 Polyp of cervix uteri (principal); R31.29 Other microscopic hematuria
CPT/HCPCS: 99213

== ENCOUNTER 2025-04-26 10:49 | Day surgery (SDC) | payer OTHER, SELFPAY ==
[2025-04-23 15:33] VITALS: BMI 23.0
--- NOTE | 2025-04-25 08:30 | P.CONAN_ITS ---
HPI - Anesthesia Eval Consult details Narrative: 45yo F for D&C Hysteroscopy,possible myomectomy,possible polypectomy PMFSH Active Problems Active Problems: All Active Problems Endocervical polyp (Acute) Microscopic hematuria (Acute) Pelvic pain (Acute) Well woman exam (Acute) Procedure and treatment not carried out due to patient leaving prior to being seen by health care provider (Acute) Dermoid cyst (Acute) Tremor (Acute) Abnormal brain MRI (Acute) Physical exam (Acute) New persistent daily headache (Acute) Migraines (Acute) Bilateral hand pain (Acute) Polyarthralgia (Acute) Hyperlipidemia LDL goal <70 (Acute) Foot pain (Acute) Right knee pain (Acute) Left knee pain (Acute) Right shoulder pain (Acute) Adult general medical exam (Acute) Menorrhagia (Acute) Encounter to discuss test results (Acute) Encounter for annual routine gynecological examination (Acute) Blurry vision (Acute) Strain of right trapezius muscle (Acute) Right shoulder pain (Acute) Chronic GERD (Acute) Dyslipidemia (Acute) Obese (Acute) Diabetes mellitus (Acute) Past Medical History Medical History Migraines Tremor Chronic GERD Dyslipidemia Obese Diabetes mellitus Family History Family History Mother Hypertension Pre-diabetes Father Hypertension Diabetes Surgical History Surgical History History of bilateral tubal ligation Hx of breast reduction, elective Social History Social History Housing: Apartment Are you a primary health and social care teacher to a significant other at home: No Do you presently have visiting nurse or other home services: No Alcohol intake: current Alcohol intake frequency: does not drink Alcohol type: wine Patient Tobacco Use Status: Never used Tobacco e-Cigarette/Vaping Use: Never Used Second Hand Smoke Exposure: No service: No Current occupational status: employed 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 Current occupational exposures/hazards: No Sexual orientation: Straight/Heterosexual Gender identity: Female Cognitive needs: No Hearing needs: No Vision needs: Yes Meds Allergies Allergy/AdvReac Type Severity Reaction Status Date / Time empagliflozin (From AdvReac Intermediate UTI Verified 04/23/25 15:29 Jardiance) insulin degludec (From AdvReac Intermediate Nausea and Verified 04/23/25 15:29 Tresiba FlexTouch U-100) Vomiting metformin AdvReac Intermediate Abdominal Verified 04/17/25 13:10 Pain Home Medications ?Medication ?Instructions ?Recorded ?Confirmed ?Last Taken ?Type sumatriptan succinate 25 mg tablet 25 mg PO Q2-4H PRN migraine 04/23/25 04/23/25 Unknown History topiramate 25 mg tablet 25 mg PO DAILY 04/23/25 07/06/20 Unknown History Exam Height,Weight and Vital Signs: Height 5 ft 3 in Weight 58.967 kg Assessment and Plan Assessment Anesthesia Assessment: Chart Reviewed
[2025-04-26 11:09] VITALS: BP 109/68; PULSE 77; RESP 16; TEMP 36.5; O2SAT 100
[2025-04-26 11:11] LABS: Glucose, Whole Blood 61 mg/dL (60-115)
[2025-04-26] MEDS: Lactated Ringers 1,000 ML 100 ML IVCONT (11:15)
[2025-04-26 11:28] LABS: UPreg QC Valid YES
--- NOTE | 2025-04-26 11:43 | P.CONAN_ITS ---
[facility] Active Problems Active Problems: All Active Problems (Updated 04/23/25 @ 15:30 by Wen Breen RN) Endocervical polyp (Acute) Microscopic hematuria (Acute) Pelvic pain (Acute) Well woman exam (Acute) Procedure and treatment not carried out due to patient leaving prior to being seen by health care provider (Acute) Dermoid cyst (Acute) Tremor (Acute) Abnormal brain MRI (Acute) Physical exam (Acute) New persistent daily headache (Acute) Migraines (Acute) Bilateral hand pain (Acute) Polyarthralgia (Acute) Hyperlipidemia LDL goal <70 (Acute) Foot pain (Acute) Right knee pain (Acute) Left knee pain (Acute) Right shoulder pain (Acute) Adult general medical exam (Acute) Menorrhagia (Acute) Encounter to discuss test results (Acute) Encounter for annual routine gynecological examination (Acute) Blurry vision (Acute) Strain of right trapezius muscle (Acute) Right shoulder pain (Acute) Chronic GERD (Acute) Dyslipidemia (Acute) Obese (Acute) Diabetes mellitus (Acute) Past Medical History Medical History Migraines Tremor Chronic GERD Dyslipidemia Obese Diabetes mellitus Functional capacity: independent ambulation Patient : No Family History Family History Mother Hypertension Pre-diabetes Father Hypertension Diabetes Family history of problems with anesthesia: No Surgical History Surgical History History of bilateral tubal ligation Hx of breast reduction, elective History of Problems with Anesthesia: Yes (PONV) Social History Social History Housing: Apartment Are you a primary acute care registered nurse to a significant other at home: No Do you presently have visiting nurse or other home services: No Alcohol intake: current Alcohol intake frequency: does not drink Alcohol type: wine Patient Tobacco Use Status: Never used Tobacco e-Cigarette/Vaping Use: Never Used Second Hand Smoke Exposure: No service: No Current occupational status: employed 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 Current occupational exposures/hazards: No Sexual orientation: Straight/Heterosexual Gender identity: Female Cognitive needs: No Hearing needs: No Vision needs: Yes Meds Allergies Allergy/AdvReac Type Severity Reaction Status Date / Time empagliflozin (From AdvReac Intermediate UTI Verified 04/23/25 15:29 Jardiance) insulin degludec (From AdvReac Intermediate Nausea and Verified 04/23/25 15:29 Tresiba FlexTouch U-100) Vomiting metformin AdvReac Intermediate Abdominal Verified 04/17/25 13:10 Pain Active Medications: Current Medications Lactated Ringer's (Lr) 1,000 mls @ 100 mls/hr IVCONT .Q10H FARZANA Dextrose (D5w) 100 mls @ 0 mls/hr IV .Q0M PRN PRN Reason: Per Protocol Home Medications ?Medication ?Instructions ?Recorded ?Confirmed ?Last Taken ?Type sumatriptan succinate 25 mg tablet 25 mg PO Q2-4H PRN migraine 04/23/25 04/23/25 Unknown History topiramate 25 mg tablet 25 mg PO DAILY 04/23/25/06/20 Unknown History Exam Height,Weight and Vital Signs: Height 5 ft 3 in Weight 58.967 kg Last Vital Signs Temp 97.7 F 04/26/25 11:09 Pulse 77 04/26/25 11:09 Resp 16 04/26/25 11:09 BP 109/68 04/26/25 11:09 Pulse Ox 100 04/26/25 11:09 O2 Del Method Room Air 04/26/25 11:09 Pertinent Lab Results Pertinent Lab Results: Laboratory Tests 04/26/25 04/26/25 10:59 11:07 POC Glucose 61 Urine Test NEGATIVE Airway Mallampati Class: I TM Dist: >3cm Neck ROM: Full Heart: RRR Lungs: CTA Assessment and Plan Assessment Anesthesia Assessment: Anesthesia Plan Discussed Final Anesthetic Review Family History of Problems with Anesthesia: No History of Problems with Anesthesia: Yes (PONV) NPO: Yes ASA Class: II Final Preanesthetic Review: Meds/Allgs Chart Reviewed, Consent Obtained/Reviewed and Anes Risks/Benef Reviewed Patient Risk: Low Procedure Risk: Low Anesthetic Plan Anesthetic Plan: GA Disposition: Standard PACU
--- NOTE | 2025-04-26 11:52 | MHC.SHP ---
Pre-Procedural Eval Section A - 24 Hr Update-Section A only Date of Service: 04/26/25 The patient is an INPATIENT: No Changes since office visit: No Cold of Flu in the past 2 weeks, No New Medical Problems, No Changes in Medication and No Patient answered all questions The patient has been examined within 24 hours of the surgical procedure. The History & Physical has been completed within 30 days and I have reviewed it.: Yes Section B - Complete if H&P > 30 days Chief Complaint: Polyp of cervix uteri Allergies: Allergies Allergy/AdvReac Type Severity Reaction Status Date / Time empagliflozin (From AdvReac Intermediate UTI Verified 04/23/25 15:29 Jardiance) insulin degludec (From AdvReac Intermediate Nausea and Verified 04/23/25 15:29 Tresiba FlexTouch U-100) Vomiting metformin AdvReac Intermediate Abdominal Verified 04/17/25 13:10 Pain Plan Diagnosis/Plan: Unchanged I have reviewed the history and physical and performed a pertinent physical examination on my patient. No changes have occurred unless specified. Time Spent With Patient Time: Total time managing care of this patient today ____ minutes.
[2025-04-26] MEDS: Dextrose 5 % 100 ML IV (12:07)
--- NOTE | 2025-04-26 12:59 | P.OP_ITS ---
Operative Note Operative Note Date of Service: 04/26/25 Narrative: Preop Diagnosis: Endocervical polyp by US Operation: Diagnostic Hysteroscopy, Dilataion & Curettage and polypectomy Post Op Diagnosis: Endocervical and Endometrial Polyp QBL: Minimal Anesthesia: GLMA Surgeon: Joe Segundo MD Product Promoter Sales Person: None Complication: None Pathology: Endometrial Scrapings, Endometrial polyp Procedure: The patient was put in the dorsal lithotomy position, scrubbed, and draped in the usual manner. A sterile speculum was inserted in the patient's vagina. The anterior lip of the cervix was grasped with a single tooth tenaculum. The cervix was dilated up to 5 mm, then the scope was inserted in the patient's uterus. Inspection revealed endocervical and endometrial polyp. The Myosure Reach device was used; it was introduced through the operative channel and endocervical and endometrial polypectomy done with no complications. The scope was then taken out from the uterine cavity, sharp curettings was carried on with minimal to moderate amount of tissues retrieved. At the end of the procedure, all instruments were taken out of the patient uterine and vaginal cavity. The single tooth tenaculum was removed and homeostasis was assured using pressure,. The patient tolerated the procedure well and was transferred to the PACU in a stable condition.
--- NOTE | 2025-04-26 12:59 | P.BOP_ITS ---
Brief Operative Note Date of Service: 04/26/25 Pre-op diagnosis: Endocervical polyp Post-op diagnosis: same (Endocervical plus endometrial polyp) Procedure: Hysteroscopy D&C, Polypectomy Surgeon: Joe Segundo MD Anesthesia: GLMA Was an Industrial Hygenist used for this Procedure?: No Estimated blood loss (mL): 0 Pathology: other (Endometrial Scrapping. Endocervical and endometrial Polyps) Condition: stable Disposition: PACU
[2025-04-26 13:10] VITALS: BP 121/76; PULSE 85; RESP 16; TEMP 36.4; O2SAT 100
[2025-04-26 13:15] VITALS: BP 125/77; PULSE 82; RESP 14; O2SAT 100
[2025-04-26 13:20] VITALS: BP 130/79; PULSE 79; RESP 14; O2SAT 99
[2025-04-26 13:25] VITALS: BP 114/78; PULSE 72; RESP 14; O2SAT 97
[2025-04-26 13:40] VITALS: BP 113/77; PULSE 77; RESP 16; TEMP 37; O2SAT 99
== END 2025-04-26 13:57 | disposition home or self-care (01) ==
PROVIDERS: PCP Internal Medicine; Visit Provider Obstetrics & Gynecology
PROC: 0UDB8ZZ Extraction of Endometrium, Via Natural or Artificial Opening Endoscopic (ICD-10-PCS; CPT 58558; principal; 2025-04-26 13:20)
DX: N84.1 Polyp of cervix uteri (principal); N84.0 Polyp of corpus uteri; R31.29 Other microscopic hematuria; E78.5 Hyperlipidemia, unspecified; E11.9 Type 2 diabetes mellitus without complications; Z98.51 Tubal ligation status; Z88.8 Allergy status to other drugs, medicaments and biological substances; Z98.890 Other specified postprocedural states
CPT/HCPCS: 58558; 81025; 82947; 88305; J1100; J1885; J2003; J2250; J2405; J2704; J3010

== ENCOUNTER → 2025-04-26 10:49 | Outpatient (BNV) | payer OTHER, SELFPAY | PROVIDERS: PCP Internal Medicine; Visit Provider Obstetrics & Gynecology | DX: N84.0 Polyp of corpus uteri (principal) | CPT/HCPCS: 58558 ==

== ENCOUNTER 2025-05-14 08:51 | Outpatient (AMB) | payer OTHER, SELFPAY ==
--- NOTE | 2025-05-14 08:51 | A.OFFVIS_ITS ---
Vital Signs 05/14/25 08:53 Height 5 ft 3 in Weight 140 lb BMI 24.8 Intake Visit Reasons: post op Crop And Soil Technician Required: Yes Crop And Soil Technician Language: Organizational Development Consultant Services: Crop And Soil Technician Present (in person) Crop And Soil Technician Name: Viviana ZAZUETA Information Interpreted: non-clinical & clinical Accompanied by: Self / Same As Patient Allergies empagliflozin (From Jardiance) Adverse Reaction (Intermediate, Verified 05/14/25 08:52) UTI insulin degludec (From Tresiba FlexTouch U-100) Adverse Reaction (Intermediate, Verified 05/14/25 08:52) Nausea and Vomiting metformin Adverse Reaction (Intermediate, Verified 05/14/25 08:52) Abdominal Pain HPI Comments Details: The patient is presenting post hysteroscopy D&C no complaints minimal vaginal bleeding no feverishness chills or abdominal pain. Intraoperative finding: Endocervical and Endometrial polyp, hysteroscopic polypectomy done The pathology showed the following: A. Endometrial and endocervical polyp, resection: Fragments of benign en dometrial polyp with secretory changes, and fragments of benign dyssynchronous early and mid secretory endometrium; no atypia or carcinoma. B. Endometrium, curettage: Benign dyssynchronous early, mid and late secretory endometrium, and fragments of benign endometrial polyp; no atypia or carcinoma [facility] Medical History Migraines Tremor Chronic GERD Dyslipidemia Obese Diabetes mellitus Surgical History History of bilateral tubal ligation Hx of breast reduction, elective Family History Mother Hypertension Pre-diabetes Father Hypertension Diabetes Social History Housing: Apartment Are you a primary associate director career services to a significant other at home: No Do you presently have visiting nurse or other home services: No Alcohol intake: current Alcohol intake frequency: does not drink Alcohol type: wine Patient Tobacco Use Status: Never used Tobacco e-Cigarette/Vaping Use: Never Used Second Hand Smoke Exposure: No service: No Current occupational status: employed 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 Current occupational exposures/hazards: No Sexual orientation: Straight/Heterosexual Gender identity: Female Cognitive needs: No Hearing needs: No Vision needs: Yes Female Reproductive History Menstrual Age of Menarche: 13 Review of Systems Const All systems reviewed & are unremarkable except as noted in HPI and below Reports as per HPI and Reports no additional complaints GI Reports no additional complaints Reports no additional complaints Assessment & Plan Assessment & Plan (1) Endocervical polyp: Comment: With endometrial polyp status post hysteroscopic polypectomy Code(s): N84.1 - Polyp of cervix uteri Category: Medical Plan: Discussed with the patient the intraoperative findings and the pathology results, the patient was reassured. Instructions given the patient to call in case of abnormal uterine bleeding or any other concerns. All questions answered, the patient verbalized understanding Coding Level of Care Code Est Pt Level 3 (44458) Diagnoses Endocervical polyp N84.1
[2025-05-14 08:53] VITALS: BMI 24.8
== END 2025-05-14 08:57 | disposition home or self-care (01) ==
LOC: HO.HWS 08:51
PROVIDERS: PCP Internal Medicine; Visit Provider Obstetrics & Gynecology
DX: N84.1 Polyp of cervix uteri (principal)
CPT/HCPCS: 99213

== ENCOUNTER 2025-05-14 08:51 | Outpatient (REF) | payer OTHER, SELFPAY ==
[2025-05-14 10:03] LABS: Blood Urea Nitrogen 16 mg/dL (9-16); Estimated Glomerular Filt Rate > 60
== END 2025-05-14 08:52 | disposition home or self-care (01) ==
LOC: HO.LAB 08:51
PROVIDERS: PCP Internal Medicine; Visit Provider Obstetrics & Gynecology
DX: N84.1 Polyp of cervix uteri (principal); R31.29 Other microscopic hematuria; Z98.51 Tubal ligation status
CPT/HCPCS: 36415; 82565; 84520; 99212

== ENCOUNTER 2025-05-17 14:38 | Outpatient (REF) | payer OTHER, SELFPAY ==
--- NOTE | ~2025-05-17 | CT_ITS ---
EXAMINATION: CT ABDOMEN AND PELVIS WITHOUT AND WITH CONTRAST CLINICAL INFORMATION: Microscopic hematuria. COMPARISON: None available. TECHNIQUE: Multidetector volumetric imaging was performed of the abdomen and pelvis before and after the IV administration of mL of Omnipaque 350 strength intravenous contrast. Sagittal and coronal reformatted images were obtained on the technologist's workstation. This CT examination was performed using dose optimization techniques as appropriate, variously including the following: *Automated exposure control *Adjustment of mA and/or kV according to patient size (this includes techniques or standardized protocols for targeted exams where dose is matched to indication/reason for exam; i.e. extremities or head) *Use of iterative reconstruction technique. DLP: 716 mGy centimeter. FINDINGS: LUNG BASES: No acute airspace disease or discrete pulmonary nodules. LIVER, GALLBLADDER, AND BILIARY TREE: There are measures 15 cm. No focal mass. Hypodensity at the falciform ligament likely likely focal fatty infiltration. The main portal vein is patent. Gallbladder is nondistended. No pericholecystic fluid collection or gallbladder wall thickening. No intrahepatic or extrahepatic biliary ductal dilatation. PANCREAS: No focal mass. No peripancreatic fluid collection. No main pancreatic ductal dilatation. SPLEEN: 8 cm. No mass. ADRENAL GLANDS: No nodular lesion. KIDNEYS AND URETERS: No hydronephrosis. No nephrolithiasis. Normal enhancement pattern of the renal parenchyma without gross enhancing lesion. Normal urinary excretion into the collecting system. BLADDER: Bladder is collapsed without gross abnormality. 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 Abundant stool throughout the large intestine. No intestinal obstruction pattern. Appendix is normal. No pneumatosis intestinalis. No ascites. No pneumoperitoneum. No intestinal wall thickening. ABDOMINAL WALL: No gross umbilical hernia. LYMPH NODES: No mesenteric or retroperitoneal lymphadenopathy. VASCULAR: No aneurysm or dissection, abdominal aorta. No gross plaque. PELVIC VISCERA: Heterogeneous nodular uterus. There is a 2.4 cm peripheral enhancing cystic lesion left ovary. OSSEOUS STRUCTURES: Mild to moderate lower thoracic spondylosis. S-shaped curvature of the thoracolumbar spine which could be positional. No acute fracture. No acute fracture or dislocation in either hip. Pelvis is intact. Mild degenerative changes in the stents as well as and the sacroiliac joints. CT/CT abdomen pelvis wo/w IV con IMPRESSION: No hydronephrosis or nephrolithiasis. No gross renal mass. 2.4 cm cystic lesion left ovary. Fleischner guidelines were followed. Electronically signed by: Feliciano Peñaloza MD 05/17/2025 03:33 PM EDT RP
[2025-05-17] MEDS: iohexoL 350 MG/ML 100 ML INFUS..BTL IV (15:11)
== END 2025-05-17 14:39 | disposition home or self-care (01) ==
LOC: HO.CT 14:38
PROVIDERS: PCP Internal Medicine; Visit Provider Obstetrics & Gynecology
DX: R31.29 Other microscopic hematuria (principal)
CPT/HCPCS: 74178; Q9967

== ENCOUNTER → 2025-05-17 14:40 | Outpatient (BNV) | payer OTHER, SELFPAY | PROVIDERS: PCP Internal Medicine; Visit Provider Radiology Diagnostic Radiology | DX: N83.202 Unspecified ovarian cyst, left side (principal) | CPT/HCPCS: 74178 ==

== ENCOUNTER 2025-05-28 10:53 | Outpatient (AMB) | payer OTHER, SELFPAY ==
--- NOTE | 2025-05-28 11:00 | MHC.PC.OV ---
Vital Signs 05/28/25 11:02 Height 5 ft 3 in Weight 132 lb 8 oz BMI 23.5 BP 110/68 Blood Pressure Location Lt brachial Position Sitting Pulse 69 Pulse Source Pulse Oximeter Temp 97.5 F Temp Source Temporal Artery Scan Pulse Oximetry (%) 100 Oxygen Delivery Method Room Air Intake Visit Reasons: pe Intake Note: Patient is here today for a physical. Punchboard Stuffer Required: Yes Punchboard Stuffer Language: Greek Information Interpreted: non-clinical & clinical Assistant Designer: Not Required per policy Accompanied by: Self / Same As Patient Allergies sumatriptan Allergy (Intermediate, Verified 05/28/25 11:33) Numbness topiramate Allergy (Intermediate, Verified 05/28/25 11:33) Pressure in head empagliflozin (From Jardiance) Adverse Reaction (Intermediate, Verified 05/28/25 11:33) UTI insulin degludec (From Tresiba FlexTouch U-100) Adverse Reaction (Intermediate, Verified 05/28/25 11:33) Nausea and Vomiting metformin Adverse Reaction (Intermediate, Verified 05/28/25 11:33) Abdominal Pain Medication List - Last Reconciled 05/28/25 by Yumiko Max MD atorvastatin 40 mg PO BEDTIME 90 days blood sugar diagnostic (FreeStyle Lite Strips) Use 1 test strip once a day blood-glucose meter (FreeStyle Lite Meter kit) As directed glipizide 2.5 mg PO DAILY 90 days lancets (FreeStyle Lancets) Use 1 lancet once a day meloxicam 15 mg PO DAILY omeprazole 20 mg PO DAILY 90 days propranolol 10 mg PO DAILY 90 days Tobacco use date assessed: 05/28/25 Dental Screening Dental Screen Date: 10/29/24 HPI HPI Comments History of Present Illness Details The patient is a 45-year-old female presenting for a physical exam and management of diabetes. She has a history of diabetes mellitus, with her current hemoglobin A1c at 5.5%, indicating good control of her condition. She is currently taking atorvastatin, glipizide, meloxicam, omeprazole, and propranolol. The patient reports a mild to moderate level of depression, scoring 11 on the PHQ-9 scale. She is not currently receiving treatment or counseling for depression. Her family history includes diabetes and hypertension in her father, and hypertension and prediabetes in her mother. She does not smoke and consumes alcohol occasionally, approximately once a month. [facility] Medical History Migraines Tremor Chronic GERD Dyslipidemia Obese Diabetes mellitus Surgical History History of bilateral tubal ligation Hx of breast reduction, elective Family History Mother Hypertension Pre-diabetes Father Hypertension Diabetes Social History (Updated 05/28/25 @ 11:38 by Yumiko Max MD) Housing: Apartment Are you a primary child care assistant to a significant other at home: No Do you presently have visiting nurse or other home services: No Alcohol intake: current Alcohol intake frequency: does not drink Alcohol type: wine Patient Tobacco Use Status: Never used Tobacco e-Cigarette/Vaping Use: Never Used Second Hand Smoke Exposure: No service: No Current occupational status: employed 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 1. Little interest or pleasure in doing things: more than half the days 2. Feeling down, depressed, or hopeless: several days 3. Trouble falling or staying asleep, or sleeping too much: nearly every day 4. Feeling tired or having little energy: more than half the days 5. Poor appetite or overeating: not at all 6. Feeling bad about yourself - or that you are a failure or have let yourself or your family down: not at all 7. Trouble concentrating on things, such as reading the newspaper or watching television: several days 8. Moving or speaking so slowly that other people could have noticed. Or the opposite - being so fidgety or restless that you have been moving around a lot more than usual: several days 9. Thoughts that you would be better off or of hurting yourself in some way: several days Total score: 11 Depression Screening Interpretation: Positive Depression Screening Follow-up: Existing condition and Follow-up Visit Requested Depression Screening Done: Yes 64534 - PHQ-9 Billing: Yes Source: Developed by Drs. Chandan Bañuelos, Black Saenz and colleagues, with an educational stan from [employer]. Thrive Questionnaire Date Thrive assessed: 10/29/24 I am a: Patient What is your living situation today?: I have a steady place to live Within the past 12 months, did the food you bought not last and you didn't have the money to get more?: Sometimes True Within the past 12 months, did you worry whether your food would run out before you got money to buy more?: Often true Do you have trouble paying for medicines?: No Do you have trouble getting transportation to medical appointments?: No Do you have trouble paying your heating and electricity bill?: I choose not to answer this question Do you have trouble taking care of your child, family member or friend?: No Do you have trouble with day-to-day activities such as bathing, preparing meals, shopping, managing finances, etc.?: No Are you currently unemployed and looking for a job?: I choose not to answer this question Are you interested in more education?: No Please select the resources that you would like help with: Housing/Senior Living Currently or been in a relationship where the following occur: No concerns reported THRIVE Score: 2 AUDIT C Alcohol Use Questionnaire (AUDIT-C) 1. How often do you have a drink containing alcohol?: Monthly or less Total Score: 1 Score Reviewed/Action Taken: No DIDI-7 AMB Questionnaire DIDI-7 Date DIDI - 7 assessed: 05/28/25 Feeling nervous, anxious, or on edge: 1 = Several days Not being able to stop or control worryin = More than half the days Worrying too much about different things: 2 = More than half the days Trouble relaxin = More than half the days Being so restless that it is hard to sit still: 2 = More than half the days Becoming easily annoyed or irritable: 2 = More than half the days Feeling afraid as if something awful might happen: 1 = Several days Total DIDI-7 score (0-4 normal; 5-9 mild; 10-14 moderate; 15-21 severe): 12 Source: Developed by Edel Zavala Kurt Kroenke and colleagues, with an educational stan from [employer]. DIDI-7 Assessment Billing DIDI-7 Assessment Tool: DIDI-7 Assessment 62647 Review of Systems Const All systems reviewed & are unremarkable except as noted in HPI and below Card Denies chest pain at rest, Denies chest pain with activity, Denies edema, Denies irregular heart rhythm, Denies claudication, Denies dyspnea, Denies dyspnea on exertion, Denies orthopnea, Denies paroxysmal nocturnal dyspnea and Denies slow heart rate Resp Denies cough, Denies dyspnea and Denies dyspnea on exertion GI Denies abdominal pain, Denies change in bowel habits, Denies excessive flatus, Denies nausea and Denies vomiting Physical exam (Primary Care) Vital Signs: Last Vital Signs Temp 97.5 F 05/28/25 11:02 Pulse 69 05/28/25 11:02 BP 110/68 05/28/25 11:02 Pulse Ox 100 05/28/25 11:02 Oxygen Delivery Method Room Air 05/28/25 11:02 BMI result Body Mass Index 23.5 Tobacco/Smoking Status: Tobacco use Status Tobacco use date assessed 05/28/25 05/28/25 11:05 Patient Tobacco Use Status Never used Tobacco 05/28/25 11:05 Tobacco use type 05/21/25 09:50 e-Cigarette/Vaping Use Never Used 05/28/25 11:05 PHQ-9: PHQ-9 Score PHQ-9: Total score 11 05/28/25 11:05 Depression Screening Interpretation: Positive Depression Screening Follow-up: Existing condition and Follow-up Visit Requested Thrive Assessment: Date of Thrive Assessment Date Thrive assessed 10/29/24 05/28/25 11:05 Currently or been in a relationship where the following occur: No concerns reported [facility] Head: Yes normal to inspection, Yes normocephalic and Yes atraumatic Ears: external ears normal Eyes General: appearance normal, both eyes and all related structures Eyelids: Yes eyelids normal Conjunctivae: conjunctivae normal Neck Neck: Yes normal visual inspection and Yes supple Resp Effort & Inspection: normal respiratory effort Auscultation: clear to auscultation bilaterally Cardio Jugular venous distension: no JVD Rate: regular rate Rhythm: regular rhythm Heart sounds: S1 normal heart sound present and S2 normal heart sound present GI Inspection: Yes normal to inspection Palpation (GI): Soft to palpation and nontender Auscultation: normal bowel sounds Skin General skin exam: no rashes or lesions noted Neuro General: no focal motor deficits Extrem General: Yes full ROM Psych Appearance: grossly normal Results AMB Hemoglobin A1c AMB Hemoglobin A1c 5.5 % Last Edit by CARLITA Brown on 05/28/25 11:23 Results Reviewed Results Reviewed: Laboratory Last Values Hgb A1c (Clinic) 5.5 % (4.0-6.0) 05/28/25 11:13 Coding Level of Care Code Est Pt Prev Care 40-64y(23363) Diagnoses Physical exam Z00.00 Type 2 diabetes mellitus with hyperglycemia, without long-term current use of insulin E11.65 Diabetes mellitus type: type 2 Diabetes mellitus skilled nursing insulin use: without terminal clerk use Diabetes mellitus complication status: with hyperglycemia Mild major depression F32.0 Additional Codes PHQ-9 - 57235 - PHQ-9 Billing: Yes ([id number]) DIDI-7 Assessment Billing - DIDI-7 Assessment Tool: DIDI-7 Assessment [id number] ([id number]) Time Spent (min) 30 Assessment & Plan Assessment & Plan (1) Physical exam: Code(s): Z00.00 - Encounter for general adult medical examination without abnormal findings Category: Medical (2) Diabetes mellitus: Code(s): E11.9 - Type 2 diabetes mellitus without complications Category: Medical Qualifiers: Diabetes mellitus type: type 2 Diabetes mellitus terminal clerk insulin use: without skilled nursing use Diabetes mellitus complication status: with hyperglycemia Qualified Code(s): E11.65 - Type 2 diabetes mellitus with hyperglycemia (3) Mild major depression: Code(s): F32.0 - Major depressive disorder, single episode, mild Category: Medical Plan Plan Patient was informed and verbally consented to the use of an ambient scribe for clinic note documentation during this visit. 1. Encounter for general adult medical examination without abnormal findings Z00.00 Cologuard is recommended every three years if results are negative. No family history of colon cancer or rectal bleeding reported. 2. Type 2 diabetes mellitus without complications E11.9 HCC 19 The patient's diabetes is well-controlled with a hemoglobin A1c of 5.5%. Current medications include atorvastatin and glipizide. Regular monitoring and laboratory tests are recommended to maintain control. 3. Depression, unspecified F32.A The patient reports mild to moderate depression with a PHQ-9 score of 11. She is not currently on medication or receiving counseling. Discussion about potential treatment options and follow-up is advised. Orders: Orders Microalbumin, Random (w Creat) Today R80.9 - Proteinuria, unspecified AMB Hemoglobin A1c Today E11.65 - Type 2 diabetes mellitus with hyperglycemia Lipid Panel Today E78.5 - Hyperlipidemia, unspecified Comprehensive [place]. Panel Fast Today E11.65 - Type 2 diabetes mellitus with hyperglycemia Referrals Cologuard Test Z12.11 - Encounter for screening for malignant neoplasm of colon, Z12.12 - Encounter for screening for malignant neoplasm of rectum
[2025-05-28 11:02] VITALS: BP 110/68; PULSE 69; TEMP 36.4; O2SAT 100; BMI 23.5
== END 2025-05-28 11:43 | disposition home or self-care (01) ==
LOC: HO.HMCH 10:56
PROVIDERS: PCP Internal Medicine; Visit Provider Internal Medicine
DX: Z00.00 Encounter for general adult medical examination without abnormal findings (principal); E11.65 Type 2 diabetes mellitus with hyperglycemia; F32.0 Major depressive disorder, single episode, mild

== ENCOUNTER → 2025-05-28 10:53 | Outpatient (BNVA) | payer OTHER, SELFPAY | PROVIDERS: PCP Internal Medicine; Visit Provider Internal Medicine | DX: Z00.00 Encounter for general adult medical examination without abnormal findings (principal); E11.65 Type 2 diabetes mellitus with hyperglycemia; F32.0 Major depressive disorder, single episode, mild; I10 Essential (primary) hypertension; R80.9 Proteinuria, unspecified; E78.5 Hyperlipidemia, unspecified | CPT/HCPCS: 83036; 96127; 99396 ==

== ENCOUNTER 2025-06-10 09:56 | Outpatient (AMB) | payer OTHER, SELFPAY ==
--- NOTE | 2025-06-10 09:56 | MHC.OFFVIS ---
Intake Visit Reasons: TV Ct results Allergies sumatriptan Allergy (Intermediate, Verified 05/28/25 11:33) Numbness topiramate Allergy (Intermediate, Verified 05/28/25 11:33) Pressure in head empagliflozin (From Jardiance) Adverse Reaction (Intermediate, Verified 05/28/25 11:33) UTI insulin degludec (From Tresiba FlexTouch U-100) Adverse Reaction (Intermediate, Verified 05/28/25 11:33) Nausea and Vomiting metformin Adverse Reaction (Intermediate, Verified 05/28/25 11:33) Abdominal Pain HPI Comments Details: The patient is scheduled a telehealth visit to discuss the results of the CT scan which showed the following: IMPRESSION: No hydronephrosis or nephrolithiasis. No gross renal mass. 2.4 cm cystic lesion left ovary. Appointment schedule with Urology on 06/27/2025 [facility] Medical History Migraines Tremor Chronic GERD Dyslipidemia Obese Diabetes mellitus Surgical History History of bilateral tubal ligation Hx of breast reduction, elective Family History Mother Hypertension Pre-diabetes Father Hypertension Diabetes Social History Housing: Apartment Are you a primary career specialist to a significant other at home: No Do you presently have visiting nurse or other home services: No Alcohol intake: current Alcohol intake frequency: does not drink Alcohol type: wine Patient Tobacco Use Status: Never used Tobacco e-Cigarette/Vaping Use: Never Used Second Hand Smoke Exposure: No service: No Current occupational status: employed 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 Current occupational exposures/hazards: No Sexual orientation: Straight/Heterosexual Gender identity: Female Cognitive needs: No Hearing needs: No Vision needs: Yes Female Reproductive History Menstrual Age of Menarche: 13 Review of Systems Const All systems reviewed & are unremarkable except as noted in HPI and below Reports as per HPI and Reports no additional complaints GI Reports no additional complaints Reports no additional complaints Telehealth Telehealth Telehealth Platform: [facility] Location of provider rendering services: practice address Location of patient: address on file Patient Identification confirmed using: Name, : Yes Telehealth method: video Patient verbally consented to treatment: Yes Patient verbally consented to billing insurance company: Yes Patient informed of any privacy concerns related to visit: Yes Minutes spent on Phone/Video with Pt.: 3 Assessment & Plan Assessment & Plan (1) Microscopic hematuria: Code(s): R31.29 - Other microscopic hematuria Category: Medical Plan: Discussed with the patient the results of the CT scan results regarding microscopic hematuria, Urology appointment scheduled on 06/27. The patient is aware. (2) Adnexal cyst: Code(s): N94.9 - Unspecified condition associated with female genital organs and menstrual cycle Category: Medical Plan: Discussed with the patient the results of the CT scan showing cystic lesion, order ultrasound of the pelvis. Instructions given to the patient to schedule a pelvic ultrasound and a follow-up appointment afterwards I spent a total of 20 minutes reviewing the chart, talking to the patient via video and documenting in the medical record. Orders: Orders US pelvic and transvaginal Today N94.9 - Unspecified condition associated with female genital organs and menstrual cycle Coding Level of Care Code Tele Est Pt Level 3 (30283) Diagnoses Microscopic hematuria R31.29 Adnexal cyst N94.9
== END 2025-06-10 10:20 | disposition home or self-care (01) ==
LOC: HO.HWS 09:56
PROVIDERS: PCP Internal Medicine; Visit Provider Obstetrics & Gynecology
DX: R31.29 Other microscopic hematuria (principal); N94.9 Unspecified condition associated with female genital organs and menstrual cycle
CPT/HCPCS: 99213

== ENCOUNTER 2025-07-30 14:29 | Outpatient (REF) | payer OTHER, SELFPAY ==
--- NOTE | ~2025-07-30 | US_ITS ---
EXAMINATION: US PELVIS CLINICAL INFORMATION: 2.4 cm left Adnexal cyst on prior CT examination. COMPARISON: CT abdomen and pelvis 05/17/2025. 04/15/2025 ultrasound pelvis. TECHNIQUE: Ultrasound of the pelvis is performed using both transabdominal and transvaginal transducers along with Doppler. Transvaginal imaging is performed due to inadequate visualization transabdominally. FINDINGS: UTERUS: The uterus is anteverted, anteflexed, and measures 8.9 x 4.9 x 5.6 cm. Volume = 127.9 mL. The cervix is normal. The double wall endometrial thickness is 5 mm. It is uniform. The uterus is smooth in contour and has heterogeneous myometrial echogenicity. There are 3 discrete small uterine fibroids. There is a ventral right fundal intramural fibroid measuring 1.7 x 1.6 x 1.5 cm. There is a dorsal intramural fundal fibroid measuring 1.4 x 1.7 x 1.3 cm. There is a mid uterine segment dorsal fibroid measuring 0.6 x 0.6 x 0.7 cm. ADNEXA: Both ovaries are visualized. There is normal color flow to the adnexa. There is no ovarian torsion. There is no pelvic ascites or fluid collection. Right ovary measures 1.7 x 2.1 x 2.3 cm. Volume = 4.3 mL. Normal sonographic appearance. Left ovary measures 2.4 x 1.6 x 2.0 cm. Volume = 4.0 mL. Normal sonographic appearance. US/US pelvic and transvaginal IMPRESSION: 1. There are 3 small intramural uterine fibroids, the largest measuring 1.7 cm in the ventral fundus. 2. There is a normal endometrial stripe measuring 5 mm. 3. The ovaries are normal. There are no suspicious cysts or masses. Electronically signed by: James Bernabe MD 07/30/2025 03:31 PM [facility] [place]
== END 2025-07-30 14:30 | disposition home or self-care (01) ==
LOC: HO.US 14:29
PROVIDERS: PCP Internal Medicine; Visit Provider Obstetrics & Gynecology
DX: N94.9 Unspecified condition associated with female genital organs and menstrual cycle (principal)
CPT/HCPCS: 76830; 76856

== ENCOUNTER → 2025-07-30 14:30 | Outpatient (BNV) | payer OTHER, SELFPAY | PROVIDERS: PCP Internal Medicine; Visit Provider Radiology Diagnostic Radiology | DX: D25.1 Intramural leiomyoma of uterus (principal) | CPT/HCPCS: 76830; 76856 ==

== ENCOUNTER 2025-08-12 11:58 | Outpatient (AMB) | payer OTHER, SELFPAY ==
--- NOTE | 2025-08-12 12:05 | A.OFFVIS_ITS ---
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: [employer] Present (in person) [employer] Name: Viviana ZAZUETA Information Interpreted: non-clinical & clinical Accompanied by: Self / Same As Patient Allergies sumatriptan Allergy (Intermediate, Verified 08/12/25 12:07) Numbness topiramate Allergy (Intermediate, Verified 08/12/25 12:07) Pressure in head empagliflozin (From Jardiance) Adverse Reaction (Intermediate, Verified 08/12/25 12:07) UTI insulin degludec (From Tresiba FlexTouch U-100) Adverse Reaction (Intermediate, Verified 08/12/25 12:07) Nausea and Vomiting metformin Adverse Reaction (Intermediate, Verified 08/12/25 12:07) Abdominal Pain HPI Comments Details: Presenting for ultrasound follow-up which shows done recently and showed the following: UTERUS: The uterus is anteverted, anteflexed, and measures 8.9 x 4.9 x 5.6 cm. Volume = 127.9 mL. The cervix is normal. The double wall endometrial thickness is 5 mm. It is uniform. The uterus is smooth in contour and has heterogeneous myometrial echogenicity. There are 3 discrete small uterine fibroids. There is a ventral right fundal intramural fibroid measuring 1.7 x 1.6 x 1.5 cm. There is a dorsal intramural fundal fibroid measuring 1.4 x 1.7 x 1.3 cm. There is a mid uterine segment dorsal fibroid measuring 0.6 x 0.6 x 0.7 cm. ADNEXA: Both ovaries are visualized. There is normal color flow to the adnexa. There is no ovarian torsion. There is no pelvic ascites or fluid collection. Right ovary measures 1.7 x 2.1 x 2.3 cm. Volume = 4.3 mL. Normal sonographic appearance. Left ovary measures 2.4 x 1.6 x 2.0 cm. Volume = 4.0 mL. Normal sonographic appearance. [facility] Medical History Migraines Tremor Chronic GERD Dyslipidemia Obese Diabetes mellitus Surgical History History of bilateral tubal ligation Hx of breast reduction, elective Family History Mother Hypertension Pre-diabetes Father Hypertension Diabetes Social History Housing: Apartment Are you a primary personal carer to a significant other at home: No Do you presently have visiting nurse or other home services: No Alcohol intake: current Alcohol intake frequency: does not drink Alcohol type: wine Patient Tobacco Use Status: Never used Tobacco e-Cigarette/Vaping Use: Never Used Second Hand Smoke Exposure: No service: No Current occupational status: employed 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 Current occupational exposures/hazards: No Sexual orientation: Straight/Heterosexual Gender identity: Female Cognitive needs: No Hearing needs: No Vision needs: Yes Female Reproductive History Menstrual Age of Menarche: 13 Review of Systems Const All systems reviewed & are unremarkable except as noted in HPI and below Reports as per HPI and Reports no additional complaints GI Reports no additional complaints Reports no additional complaints Physical Exam Vital Signs: BMI result Body Mass Index 23.4 Assessment & Plan Assessment & Plan (1) Adnexal cyst: Code(s): N94.9 - Unspecified condition associated with female genital organs and menstrual cycle Category: Medical Plan: Discussed with the patient ultrasound findings showing the previously identified adnexa cyst seen on CT scan has resolved. The patient was instructed to call if symptoms recur. All questions were answered the patient verbalized understanding. (2) Uterine myoma: Code(s): D25.9 - Leiomyoma of uterus, unspecified Category: Medical Plan: Discussed with the patient the findings on pelvic ultrasound & the risk of myosarcoma; in addition reviewed with the patient that malignancy and pre malignancy cannot be ruled out without hysterectomy for pathological evaluation ; furthermore, explained to the patient the limitation of pelvic ultrasound and endometrial biopsy in the setting. Discussed with the patient the options of treatment including expectant management versus hysterectomy; the pros and cons, risks benefits of each approach were discussed with the patient including the fact that in cases of myosarcoma, surgical treatment can lead to early diagnosis and positively affects the prognosis; after further discussion, the patient decided to proceed with expectant management. Will repeat pelvic ultrasound periodically. Instructions given to patient to call in case any of the following occurs: pressure symptoms, abnormal uterine bleeding, pelvic pain; and to schedule a six-months pelvic ultrasound (order placed) and a follow-up appointment . All questions answered, the patient verbalized understanding and agreed with the plan . Orders: Orders US pelvic and transvaginal 6 Months D25.9 - Leiomyoma of uterus, unspecified Coding Level of Care Code Est Pt Level 3 (66427) Diagnoses Adnexal cyst N94.9 Uterine myoma D25.9
[2025-08-12 12:06] VITALS: BMI 23.4
== END 2025-08-12 12:46 | disposition home or self-care (01) ==
LOC: HO.HWS 11:58
PROVIDERS: PCP Internal Medicine; Visit Provider Obstetrics & Gynecology
DX: N94.9 Unspecified condition associated with female genital organs and menstrual cycle (principal); D25.9 Leiomyoma of uterus, unspecified
CPT/HCPCS: 99213

== ENCOUNTER → 2025-08-12 11:58 | Outpatient (BNVA) | payer OTHER, SELFPAY | PROVIDERS: PCP Internal Medicine; Visit Provider Obstetrics & Gynecology | DX: Z71.2 Person consulting for explanation of examination or test findings (principal); D25.9 Leiomyoma of uterus, unspecified; N83.209 Unspecified ovarian cyst, unspecified side | CPT/HCPCS: 99212 ==

== ENCOUNTER 2025-09-05 11:02 | Outpatient (AMB) | payer OTHER, SELFPAY ==
--- NOTE | 2025-09-05 11:29 | A.OFFVIS_ITS ---
Intake Visit Reasons: Dysuria (set(UA) Intake Note: New patient presents today for initial visit for dysuria Urology Medication:None Blood Thinner:None Antibiotic Allergies:None Allergies sumatriptan Allergy (Intermediate, Verified 09/05/25 11:30) Numbness topiramate Allergy (Intermediate, Verified 09/05/25 11:30) Pressure in head empagliflozin (From Jardiance) Adverse Reaction (Intermediate, Verified 09/05/25 11:30) UTI insulin degludec (From Tresiba FlexTouch U-100) Adverse Reaction (Intermediate, Verified 09/05/25 11:30) Nausea and Vomiting metformin Adverse Reaction (Intermediate, Verified 09/05/25 11:30) Abdominal Pain PFSH Medical History Migraines Tremor Chronic GERD Dyslipidemia Obese Diabetes mellitus Surgical History History of bilateral tubal ligation Hx of breast reduction, elective Family History Mother Hypertension Pre-diabetes Father Hypertension Diabetes Social History Housing: Apartment Are you a primary healthcare management to a significant other at home: No Do you presently have visiting nurse or other home services: No Alcohol intake: current Alcohol intake frequency: does not drink Alcohol type: wine Patient Tobacco Use Status: Never used Tobacco e-Cigarette/Vaping Use: Never Used Second Hand Smoke Exposure: No service: No Current occupational status: employed 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 Current occupational exposures/hazards: No Sexual orientation: Straight/Heterosexual Gender identity: Female Cognitive needs: No Hearing needs: No Vision needs: Yes Female Reproductive History Menstrual Age of Menarche: 13 Results AMB Urinalysis, Automated UA Leukoctes 0 Samuel/uL Last Edit by Manju Hull on 09/05/25 16:36 UA Nitrite Negative Last Edit by Manju Hull on 09/05/25 16:36 UA Urobilinogen 1 mg/dL Last Edit by Manju Hull on 09/05/25 16:36 UA Protein 15 mg/dL Last Edit by Manju Hull on 09/05/25 16:36 UA pH 6.0 Last Edit by Manju Hull on 09/05/25 16:36 UA Blood 10 Shlomo/uL Last Edit by Manju Angeltiz on 09/05/25 16:36 UA Specific Bradley 1.015 Last Edit by Manju Angeltiz on 09/05/25 16:36 UA Ketone Positive Last Edit by Manju Angeltiz on 09/05/25 16:36 UA Bilirubin 1 mg/dL Last Edit by Manju Angeltiz on 09/05/25 16:36 UA Glucose 0 mg/dL Last Edit by Manju Angeltiz on 09/05/25 16:36 Results Reviewed Results Reviewed: Date of Service: 05/17/25 Procedure(s): CT abdomen pelvis wo/w IV con Accession Number(s): [id number] cc: Yumiko Gonzalez MD; Joe Segundo MD~ Report Number: [id number]: Total DLP = 716.00 mGy-cm EXAMINATION: CT ABDOMEN AND PELVIS WITHOUT AND WITH CONTRAST CLINICAL INFORMATION: Microscopic hematuria. COMPARISON: None available. TECHNIQUE: Multidetector volumetric imaging was performed of the abdomen and pelvis before and after the IV administration of mL of Omnipaque 350 strength intravenous contrast. Sagittal and coronal reformatted images were obtained on the technologist's workstation. This CT examination was performed using dose optimization techniques as appropriate, variously including the following: *Automated exposure control *Adjustment of mA and/or kV according to patient size (this includes techniques or standardized protocols for targeted exams where dose is matched to indication/reason for exam; i.e. extremities or head) *Use of iterative reconstruction technique. DLP: 716 mGy centimeter. FINDINGS: LUNG BASES: No acute airspace disease or discrete pulmonary nodules. LIVER, GALLBLADDER, AND BILIARY TREE: There are measures 15 cm. No focal mass. Hypodensity at the falciform ligament likely likely focal fatty infiltration. The main portal vein is patent. Gallbladder is nondistended. No pericholecystic fluid collection or gallbladder wall thickening. No intrahepatic or extrahepatic biliary ductal dilatation. PANCREAS: No focal mass. No peripancreatic fluid collection. No main pancreatic ductal dilatation. SPLEEN: 8 cm. No mass. ADRENAL GLANDS: No nodular lesion. KIDNEYS AND URETERS: No hydronephrosis. No nephrolithiasis. Normal enhancement pattern of the renal parenchyma without gross enhancing lesion. Normal urinary excretion into the collecting system. BLADDER: Bladder is collapsed without gross abnormality. 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 Abundant stool throughout the large intestine. No intestinal obstruction pattern. Appendix is normal. No pneumatosis intestinalis. No ascites. No pneumoperitoneum. No intestinal wall thickening. ABDOMINAL WALL: No gross umbilical hernia. LYMPH NODES: No mesenteric or retroperitoneal lymphadenopathy. VASCULAR: No aneurysm or dissection, abdominal aorta. No gross plaque. PELVIC VISCERA: Heterogeneous nodular uterus. There is a 2.4 cm peripheral enhancing cystic lesion left ovary. OSSEOUS STRUCTURES: Mild to moderate lower thoracic spondylosis. S-shaped curvature of the thoracolumbar spine which could be positional. No acute fracture. No acute fracture or dislocation in either hip. Pelvis is intact. Mild degenerative changes in the stents as well as and the sacroiliac joints. CT/CT abdomen pelvis wo/w IV con IMPRESSION: No hydronephrosis or nephrolithiasis. No gross renal mass. 2.4 cm cystic lesion left ovary. Assessment & Plan Assessment & Plan Orders: Orders AMB Urinalysis Automated Today Z13.9 - Encounter for screening, unspecified Coding
== END 2025-09-05 12:28 | disposition home or self-care (01) ==
LOC: HO.HUSH 11:02
PROVIDERS: PCP Internal Medicine; Visit Provider Urology
DX: Z13.9 Encounter for screening, unspecified (principal)